=== PATIENT | female | born 1930 | race African-American/Black ===

== ENCOUNTER 2017-11-15 07:33 | Emergency (ER) | payer MEDICARE | END 2017-11-15 09:48 | disposition home or self-care (01) | LOC: ER 07:33 | DX: S80.02XA Contusion of left knee, initial encounter (principal); S80.01XA Contusion of right knee, initial encounter; Z88.0 Allergy status to penicillin; W18.39XA Other fall on same level, initial encounter; Y93.89 Activity, other specified; Y99.8 Other external cause status; Y92.89 Other specified places as the place of occurrence of the external cause | CPT/HCPCS: 73564; 99284 ==

== ENCOUNTER 2017-12-10 18:54 | Inpatient (IN) | payer MEDICARE ==
[2017-12-10 19:30] LABS: ADD MAN DIFF? NO
[2017-12-10 19:32] LABS: BASO % 0 % (0-3); EOS % 0 % (0-3); HEMATOCRIT 36.9 % (36.0-47.0); HEMOGLOBIN 12.6 g/dL (12.0-15.5); LYMPH % 9 % (24-48); MEAN CORPUSCULAR HEMOGLOBIN 31 pg (25-35); MEAN CORPUSCULAR HGB CONC 34 g/dL (31-37); MEAN CORPUSCULAR VOLUME 90 fL (79-100); MONO # 0.6 x10^3/uL (0.0-1.1); MONO % 6 % (0-9); NEUT # 8.7 x10^3uL (1.8-7.7); NEUT % 84 % (31-73); PLATELET COUNT 180 x10^3/uL (140-400); WHITE BLOOD COUNT 10.4 x10^3/uL (4.0-11.0)
[2017-12-10 19:58] LABS: ANION GAP 12 (6-14); BLOOD UREA NITROGEN 38 mg/dL (7-20); CALCIUM 9.6 mg/dL (8.5-10.1); CARBON DIOXIDE 24 mmol/L (21-32); CHLORIDE 96 mmol/L (98-107); CREATININE 2.3 mg/dL (0.6-1.0); GFR 24.4; GLUCOSE 112 mg/dL (70-99); POTASSIUM 3.8 mmol/L (3.5-5.1); SODIUM 132 mmol/L (136-145)
[2017-12-10] MEDS: IV NORMAL SALINE 500ML BAG 500 ML IV ×2 (20:01→21:10)
[2017-12-10 20:03] LABS: LACTIC ACID 1.5 mmol/L (0.4-2.0); TROPONINI 0.031 ng/mL (0.000-0.055)
[2017-12-10 20:08] LABS: NT-PRO BNP 1078 pg/mL (0-449)
[2017-12-10 20:10] LABS: ALBUMIN 2.7 g/dL (3.4-5.0); ALK PHOS 81 U/L (46-116); ALT (SGPT) 35 U/L (14-59); AST (SGOT) 63 U/L (15-37); DIRECT BILIRUBIN 0.2 mg/dL (0.0-0.2); LIPASE 66 U/L (73-393); TOTAL BILIRUBIN 0.6 mg/dL (0.2-1.0); TOTAL PROTEIN 7.8 g/dL (6.4-8.2)
[2017-12-10 21:27] LABS: BILIRUBIN,URINE SMALL (NEG); GLUCOSE,URINE NEGATIVE (NEG); NITRITE,URINE NEGATIVE (NEG); PH,URINE 5.5; PROTEIN,URINE NEGATIVE (NEG-TRACE)
[2017-12-10 21:34] LABS: CLARITY,URINE CLEAR; COLOR,URINE DK YELLOW
[2017-12-10 21:38] LABS: BACTERIA,URINE FEW /HPF (0-FEW); RBC,URINE 0 /HPF (0-2); SQUAMOUS EPITHELIAL CELL,UR MOD /LPF
[2017-12-10 21:42] LABS: CREATINE KINASE 1113 U/L (26-192)
[2017-12-10] MEDS: IV RINGERS,LACTATED 500ML 500 ML IV ×2 (22:15)
[2017-12-10] MEDS: ONDANSETRON PF 4 MG/2 ML VIAL. IV (22:21)
[2017-12-10] MEDS: fentaNYL PF VIAL 100 MCG/2 ML VIAL IV ×2 (22:23→23:39)
[2017-12-10] MEDS ORDERED: ONDANSETRON PF 4 MG/2 ML VIAL. IV (22:45)
[2017-12-10 23:50] LABS: CREATINE KINASE 939 U/L (26-192)
[2017-12-11] MEDS: PROMETH/CODEINE 6.25/10MG 5 ML SYRUP. PO ×3 (02:57→17:20)
[2017-12-11] MEDS: IV NORMAL SALINE 1000ML BAG 1,000 ML IV ×3 (02:58→18:45)
[2017-12-11 05:12] LABS: ADD MAN DIFF? NO
[2017-12-11 05:20] LABS: BASO % 0 % (0-3); EOS % 0 % (0-3); HEMATOCRIT 35.1 % (36.0-47.0); HEMOGLOBIN 11.7 g/dL (12.0-15.5); LYMPH # 0.7 x10^3/uL (1.0-4.8); LYMPH % 7 % (24-48); MEAN CORPUSCULAR HEMOGLOBIN 30 pg (25-35); MEAN CORPUSCULAR HGB CONC 33 g/dL (31-37); MEAN CORPUSCULAR VOLUME 90 fL (79-100); MONO # 0.8 x10^3/uL (0.0-1.1); MONO % 8 % (0-9); NEUT # 8.1 x10^3uL (1.8-7.7); NEUT % 85 % (31-73); PLATELET COUNT 161 x10^3/uL (140-400); RED CELL DISTRIBUTION WIDTH 14.9 % (11.5-14.5); WHITE BLOOD COUNT 9.6 x10^3/uL (4.0-11.0)
[2017-12-11 05:41] LABS: ANION GAP 12 (6-14); BLOOD UREA NITROGEN 31 mg/dL (7-20); CARBON DIOXIDE 23 mmol/L (21-32); CHLORIDE 99 mmol/L (98-107); CREATININE 1.3 mg/dL (0.6-1.0); GFR 47.1; GLUCOSE 100 mg/dL (70-99); POTASSIUM 3.6 mmol/L (3.5-5.1); SODIUM 134 mmol/L (136-145)
[2017-12-11] MEDS: traMADol 50 MG TABLET PO ×2 (08:42→20:44)
[2017-12-11] MEDS: LOSARTAN POTASSIUM 50 MG TABLET. PO (09:00)
[2017-12-11] MEDS: amLODIPine BESYLATE 10 MG TABLET PO (09:00)
[2017-12-11] MEDS ORDERED: NON FORMULARY ITEM (Valsartan/Hydrochlorothiazide (Diovan Hct 160-12.5 Mg Tab) 1 TAB) PO (09:00)
[2017-12-11] MEDS: hydroCHLOROthiazide 12.5 MG CAPSULE PO (09:00)
[2017-12-11] MEDS: ENOXAPARIN 30 MG/0.3 ML SYRINGE. SQ (11:11)
[2017-12-11] MEDS: MORPHINE SULFATE 4 MG/ML DISP.SYRIN. IV (17:20)
[2017-12-12] MEDS: PROMETH/CODEINE 6.25/10MG 5 ML SYRUP. PO ×2 (03:58→13:29)
[2017-12-12] MEDS: traMADol 50 MG TABLET PO ×2 (07:46→14:44)
[2017-12-12] MEDS: amLODIPine BESYLATE 10 MG TABLET PO (07:46)
[2017-12-12] MEDS: ENOXAPARIN 30 MG/0.3 ML SYRINGE. SQ (07:47)
[2017-12-12] MEDS: LOSARTAN POTASSIUM 50 MG TABLET. PO (07:48)
[2017-12-12] MEDS: hydroCHLOROthiazide 12.5 MG CAPSULE PO (07:48)
[2017-12-13] MEDS: PROMETH/CODEINE 6.25/10MG 5 ML SYRUP. PO ×2 (00:24→22:03)
[2017-12-13] MEDS: HYDROcodone/APAP 5/325MG 1 TAB TABLET PO ×4 (00:25→19:54)
[2017-12-13 04:36] LABS: ADD MAN DIFF? NO
[2017-12-13 04:45] LABS: BASO % 0 % (0-3); EOS % 0 % (0-3); HEMATOCRIT 35.1 % (36.0-47.0); HEMOGLOBIN 11.7 g/dL (12.0-15.5); LYMPH # 1.1 x10^3/uL (1.0-4.8); LYMPH % 12 % (24-48); MEAN CORPUSCULAR HEMOGLOBIN 30 pg (25-35); MEAN CORPUSCULAR HGB CONC 33 g/dL (31-37); MEAN CORPUSCULAR VOLUME 90 fL (79-100); MONO # 0.9 x10^3/uL (0.0-1.1); MONO % 10 % (0-9); NEUT # 6.8 x10^3uL (1.8-7.7); NEUT % 77 % (31-73); PLATELET COUNT 240 x10^3/uL (140-400); RED BLOOD COUNT 3.91 x10^6/uL (3.50-5.40); RED CELL DISTRIBUTION WIDTH 14.7 % (11.5-14.5); WHITE BLOOD COUNT 8.9 x10^3/uL (4.0-11.0)
[2017-12-13 04:56] LABS: ANION GAP 6 (6-14); BLOOD UREA NITROGEN 15 mg/dL (7-20); CARBON DIOXIDE 28 mmol/L (21-32); CHLORIDE 99 mmol/L (98-107); GFR 63.8; GLUCOSE 109 mg/dL (70-99); POTASSIUM 3.5 mmol/L (3.5-5.1); SODIUM 133 mmol/L (136-145)
[2017-12-13] MEDS: hydroCHLOROthiazide 12.5 MG CAPSULE PO (08:33)
[2017-12-13] MEDS: LOSARTAN POTASSIUM 50 MG TABLET. PO (08:34)
[2017-12-13] MEDS: amLODIPine BESYLATE 10 MG TABLET PO (08:34)
[2017-12-13] MEDS: ENOXAPARIN 30 MG/0.3 ML SYRINGE. SQ (08:35)
[2017-12-13] MEDS: IPRATRPIUM/ALBUTEROL 0.5/2.5MG 3 ML NEBU. NEB ×3 (15:26→20:21)
[2017-12-13] MEDS: LACTOBACILLUS RHAMNOSUS GG 1 CAPSULE. PO (19:54)
[2017-12-14] MEDS: traMADol 50 MG TABLET PO ×2 (00:26→20:19)
[2017-12-14] MEDS: fentaNYL PF VIAL 100 MCG/2 ML VIAL IV (01:11)
[2017-12-14] MEDS: HYDROcodone/APAP 5/325MG 1 TAB TABLET PO ×2 (02:46→14:12)
[2017-12-14] MEDS: PROMETH/CODEINE 6.25/10MG 5 ML SYRUP. PO ×3 (04:27→20:19)
[2017-12-14 05:25] LABS: ADD MAN DIFF? NO
[2017-12-14 05:41] LABS: BASO % 0 % (0-3); EOS % 0 % (0-3); HEMATOCRIT 32.9 % (36.0-47.0); HEMOGLOBIN 11.2 g/dL (12.0-15.5); LYMPH # 0.8 x10^3/uL (1.0-4.8); LYMPH % 9 % (24-48); MEAN CORPUSCULAR HEMOGLOBIN 31 pg (25-35); MEAN CORPUSCULAR HGB CONC 34 g/dL (31-37); MEAN CORPUSCULAR VOLUME 90 fL (79-100); MONO # 0.9 x10^3/uL (0.0-1.1); MONO % 10 % (0-9); NEUT # 7.3 x10^3uL (1.8-7.7); NEUT % 81 % (31-73); PLATELET COUNT 248 x10^3/uL (140-400); RED BLOOD COUNT 3.67 x10^6/uL (3.50-5.40); RED CELL DISTRIBUTION WIDTH 14.6 % (11.5-14.5)
[2017-12-14 06:05] LABS: ANION GAP 9 (6-14); BLOOD UREA NITROGEN 15 mg/dL (7-20); CALCIUM 8.9 mg/dL (8.5-10.1); CARBON DIOXIDE 26 mmol/L (21-32); CHLORIDE 96 mmol/L (98-107); CREATININE 1.1 mg/dL (0.6-1.0); GFR 57.1; GLUCOSE 116 mg/dL (70-99); POTASSIUM 3.1 mmol/L (3.5-5.1); SODIUM 131 mmol/L (136-145)
[2017-12-14] MEDS: IPRATRPIUM/ALBUTEROL 0.5/2.5MG 3 ML NEBU. NEB ×4 (07:31→19:19)
[2017-12-14] MEDS: hydroCHLOROthiazide 12.5 MG CAPSULE PO (08:11)
[2017-12-14] MEDS: LOSARTAN POTASSIUM 50 MG TABLET. PO (08:12)
[2017-12-14] MEDS: LACTOBACILLUS RHAMNOSUS GG 1 CAPSULE. PO ×2 (08:13→20:19)
[2017-12-14] MEDS: amLODIPine BESYLATE 10 MG TABLET PO (08:13)
[2017-12-14] MEDS: ENOXAPARIN 30 MG/0.3 ML SYRINGE. SQ (08:13)
[2017-12-14] MEDS: POTASSIUM CHLORIDE 20 MEQ TABLET.ER. PO (20:19)
[2017-12-14] MEDS: IV NORMAL SALINE 1000ML BAG 1,000 ML IV (20:19)
[2017-12-14] MEDS: MELATONIN 10MG TABLET PO ×2 (20:21→21:31)
[2017-12-14] MEDS: DICLOFENAC SODIUM 1% TOPICAL GEL 100GM TUBE. TP (21:31)
[2017-12-15 04:52] LABS: BASO % 0 % (0-3); EOS % 0 % (0-3); HEMATOCRIT 34.5 % (36.0-47.0); HEMOGLOBIN 11.4 g/dL (12.0-15.5); LYMPH % 7 % (24-48); MEAN CORPUSCULAR HEMOGLOBIN 30 pg (25-35); MEAN CORPUSCULAR HGB CONC 33 g/dL (31-37); MEAN CORPUSCULAR VOLUME 90 fL (79-100); MONO # 1.1 x10^3/uL (0.0-1.1); MONO % 8 % (0-9); NEUT # 12.3 x10^3uL (1.8-7.7); NEUT % 85 % (31-73); PLATELET COUNT 297 x10^3/uL (140-400); RED BLOOD COUNT 3.85 x10^6/uL (3.50-5.40); RED CELL DISTRIBUTION WIDTH 14.9 % (11.5-14.5); WHITE BLOOD COUNT 14.4 x10^3/uL (4.0-11.0)
[2017-12-15 04:57] LABS: ADD MAN DIFF? YES
[2017-12-15 05:17] LABS: ANION GAP 9 (6-14); BLOOD UREA NITROGEN 11 mg/dL (7-20); CALCIUM 9.1 mg/dL (8.5-10.1); CARBON DIOXIDE 27 mmol/L (21-32); CHLORIDE 98 mmol/L (98-107); CREATININE 0.9 mg/dL (0.6-1.0); GLUCOSE 114 mg/dL (70-99); POTASSIUM 3.9 mmol/L (3.5-5.1); SODIUM 134 mmol/L (136-145)
[2017-12-15] MEDS: IPRATRPIUM/ALBUTEROL 0.5/2.5MG 3 ML NEBU. NEB ×3 (07:38→16:00)
[2017-12-15 08:18] LABS: % BANDS 24 % (0-9); % LYMPHS 10 % (24-48); % MONOS 7 % (0-10); % SEGS 59 % (35-66)
[2017-12-15 08:20] LABS: PLT ESTIMATE ADEQUATE (ADEQUATE); TOXIC GRANULATION SLIGHT
[2017-12-15] MEDS: traMADol 50 MG TABLET PO (10:08)
[2017-12-15] MEDS: ENOXAPARIN 30 MG/0.3 ML SYRINGE. SQ (10:08)
[2017-12-15] MEDS: LACTOBACILLUS RHAMNOSUS GG 1 CAPSULE. PO (10:08)
[2017-12-15] MEDS: LOSARTAN POTASSIUM 50 MG TABLET. PO (10:09)
[2017-12-15] MEDS: hydroCHLOROthiazide 12.5 MG CAPSULE PO (10:09)
[2017-12-15] MEDS: amLODIPine BESYLATE 10 MG TABLET PO (10:09)
[2017-12-15] MEDS: DICLOFENAC SODIUM 1% TOPICAL GEL 100GM TUBE. TP (10:10)
== END 2017-12-15 12:50 | DRG 871 ==
LOC: 5 SOUTH 22:31 → ER 18:54
PROC: 5A09357 Assistance with Respiratory Ventilation, Less than 24 Consecutive Hours, Continuous Positive Airway Pressure (ICD-10-PCS; principal; 2017-12-10)
DX: A41.9 Sepsis, unspecified organism (principal); G93.41 Metabolic encephalopathy; J69.0 Pneumonitis due to inhalation of food and vomit; E43 Unspecified severe protein-calorie malnutrition; N17.0 Acute kidney failure with tubular necrosis; N39.0 Urinary tract infection, site not specified; E87.1 Hypo-osmolality and hyponatremia; Z68.23 Body mass index [BMI] 23.0-23.9, adult; F32.9 Major depressive disorder, single episode, unspecified; I10 Essential (primary) hypertension; I27.29 Other secondary pulmonary hypertension; Z88.6 Allergy status to analgesic agent; M19.90 Unspecified osteoarthritis, unspecified site; Z88.0 Allergy status to penicillin
CPT/HCPCS: 36415; 71045; 71046; 73521; 80048; 80076; 81001; 82550; 83605; 83690; 83880; 84484; 85007; 85025; 87086; 92610-GN; 93005; 93306; 94640; 94760; 96361; 96374; 96375; 97110-GP; 97162-GP; 97166-GO; 97530-GO; 97530-GP; 97535-GO; 99285; 99285-25; J1650; J1956; J2270; J2405; J3010; J7030; J7040; J7120; J7620

== ENCOUNTER 2018-02-22 10:11 | Emergency (ER) | payer MEDICARE ==
[2018-02-22 10:21] LABS: POC GLUCOSE 121 mg/dL (70-99)
[2018-02-22 10:45] LABS: BILIRUBIN,URINE NEGATIVE (NEG); CLARITY,URINE CLOUDY; COLOR,URINE YELLOW; GLUCOSE,URINE NEGATIVE (NEG); NITRITE,URINE NEGATIVE (NEG); PH,URINE 6.5; PROTEIN,URINE NEGATIVE (NEG-TRACE)
[2018-02-22] MEDS: IV NORMAL SALINE 500ML BAG 500 ML IV (10:50)
[2018-02-22 10:54] LABS: ADD MAN DIFF? NO
[2018-02-22 10:57] LABS: BACTERIA,URINE MANY /HPF (0-FEW); RBC,URINE RARE /HPF (0-2); SQUAMOUS EPITHELIAL CELL,UR OCC /LPF
[2018-02-22 11:03] LABS: BASO % 1 % (0-3); EOS % 0 % (0-3); HEMOGLOBIN 12.6 g/dL (12.0-15.5); LYMPH % 17 % (24-48); MEAN CORPUSCULAR HEMOGLOBIN 31 pg (25-35); MEAN CORPUSCULAR HGB CONC 34 g/dL (31-37); MEAN CORPUSCULAR VOLUME 92 fL (79-100); MONO # 0.6 x10^3/uL (0.0-1.1); MONO % 10 % (0-9); NEUT # 4.3 x10^3uL (1.8-7.7); NEUT % 73 % (31-73); PLATELET COUNT 269 x10^3/uL (140-400); RED BLOOD COUNT 4.02 x10^6/uL (3.50-5.40); RED CELL DISTRIBUTION WIDTH 15.2 % (11.5-14.5); WHITE BLOOD COUNT 5.9 x10^3/uL (4.0-11.0)
[2018-02-22 11:07] LABS: ANION GAP 6 (6-14); BLOOD UREA NITROGEN 7 mg/dL (7-20); CALCIUM 8.8 mg/dL (8.5-10.1); CARBON DIOXIDE 27 mmol/L (21-32); CHLORIDE 90 mmol/L (98-107); CREATININE 0.7 mg/dL (0.6-1.0); GFR 96.2; GLUCOSE 98 mg/dL (70-99); SODIUM 123 mmol/L (136-145)
[2018-02-22 11:09] LABS: POTASSIUM 3.5 mmol/L (3.5-5.1)
[2018-02-22 11:15] LABS: TROPONINI < 0.017 ng/mL (0.000-0.055)
== END 2018-02-22 13:45 | disposition home or self-care (01) ==
LOC: ER 10:11
DX: R60.0 Localized edema (principal); F03.90 Unspecified dementia, unspecified severity, without behavioral disturbance, psychotic disturbance, mood disturbance, and anxiety; R53.83 Other fatigue; R01.1 Cardiac murmur, unspecified; M19.90 Unspecified osteoarthritis, unspecified site; I10 Essential (primary) hypertension; Z88.0 Allergy status to penicillin
CPT/HCPCS: 36415; 71045; 80048; 81001; 82962; 84484; 85025; 87086; 93005; 96365; 99285-25; J0690; J7040

== ENCOUNTER 2018-07-02 11:00 | Emergency (ER) | payer MEDICARE ==
[~2018-07-02] VITALS: Ht 160 cm; Wt 48.1 kg
[~2018-07-02 11:00] MED LIST: AMLO10TA4 PO; LEVO500T59 PO; LEVO750T31 PO; TRAM50TA PO; VALS1TAB8 PO
[2018-07-02] MEDS ORDERED: OXYMETAZOLINE 0.05% NASAL SPRAY 30ML BOTTLE. NS ONE (11:30)
[2018-07-02 11:36] VITALS: BP 151/82
[2018-07-02 11:46] LABS: BASO % 1 % (0-3); EOS # 0.1 x10^3/uL (0.0-0.7); EOS % 1 % (0-3); HEMATOCRIT 41.1 % (36.0-47.0); LYMPH # 1.2 x10^3/uL (1.0-4.8); LYMPH % 21 % (24-48); MEAN CORPUSCULAR HEMOGLOBIN 32 pg (25-35); MEAN CORPUSCULAR HGB CONC 34 g/dL (31-37); MEAN CORPUSCULAR VOLUME 94 fL (79-100); MONO # 0.5 x10^3/uL (0.0-1.1); MONO % 8 % (0-9); NEUT # 4.1 x10^3uL (1.8-7.7); NEUT % 69 % (31-73); PLATELET COUNT 214 x10^3/uL (140-400); RED BLOOD COUNT 4.37 x10^6/uL (3.50-5.40); RED CELL DISTRIBUTION WIDTH 13.1 % (11.5-14.5); WHITE BLOOD COUNT 5.9 x10^3/uL (4.0-11.0)
[2018-07-02 11:58] LABS: PROTHROMBIN TIME PATIENT 13.4 SEC (11.7-14.0)
[2018-07-02] MEDS ORDERED: SODI104S NS (12:25)
--- NOTE | 2018-07-02 12:25 | PHYS DOC ---
Past Medical History Past Medical History: Anxiety, Arthritis, CVA, Dementia, High Cholesterol, Hypertension, UTI Past Surgical History: Other Additional Past Surgical Histo: HERNIA Alcohol Use: None Drug Use: None Adult General Chief Complaint Chief Complaint: NOSEBLEED HPI HPI Patient is a 87 year old [f__sex] who presents with [] Review of Systems Review of Systems Constitutional: Denies fever or chills [] Eyes: Denies change in visual acuity, redness, or eye pain [] HENT: Denies nasal congestion or sore throat [] Respiratory: Denies cough or shortness of breath [] Cardiovascular: No additional information not addressed in HPI [] GI: Denies abdominal pain, nausea, vomiting, bloody stools or diarrhea [] : Denies dysuria or hematuria [] Musculoskeletal: Denies back pain or joint pain [] Integument: Denies rash or skin lesions [] Neurologic: Denies headache, focal weakness or sensory changes [] Endocrine: Denies polyuria or polydipsia [] All other systems were reviewed and found to be within normal limits, except as documented in this note. Current Medications Current Medications Current Medications Medications (Trade) Dose Ordered Sig/Cody Start Time Stop Time Status Last Admin Dose Admin Oxymetazoline HCl (Afrin) 2 spray 1X ONCE 07/02/18 11:30 07/02/18 11:31 DC 07/02/18 11:37 2 SPRAY Allergies Allergies Allergies Coded Allergies Type Severity Reaction Last Updated Verified Penicillins Allergy Intermediate RASH 11/15/17 Yes Physical Exam Physical Exam Constitutional: Well developed, well nourished, no acute distress, non-toxic appearance. [] HENT: Normocephalic, atraumatic, bilateral external ears normal, oropharynx moist, no oral exudates, nose normal. [] Eyes: PERRLA, EOMI, conjunctiva normal, no discharge. [] Neck: Normal range of motion, no tenderness, supple, no stridor. [] Cardiovascular:Heart rate regular rhythm, no murmur [] Lungs & Thorax: Bilateral breath sounds clear to auscultation [] Abdomen: Bowel sounds normal, soft, no tenderness, no masses, no pulsatile masses. [] Skin: Warm, dry, no erythema, no rash. [] Back: No tenderness, no CVA tenderness. [] Extremities: No tenderness, no cyanosis, no clubbing, ROM intact, no edema. [] Neurologic: Alert and oriented X 3, normal motor function, normal sensory function, no focal deficits noted. [] Psychologic: Affect normal, judgement normal, mood normal. [] Current Patient Data Vital Signs Vital Signs Date Time Temp Pulse Resp B/P (MAP) Pulse Ox O2 Delivery O2 Flow Rate FiO2 07/02/18 11:00 98.1 93 18 170/84 (112) 97 Room Air 98.1 Lab Values Laboratory Tests Test 07/02/18 11:35 White Blood Count 5.9 x10^3/uL (4.0-11.0) Red Blood Count 4.37 x10^6/uL (3.50-5.40) Hemoglobin 14.0 g/dL (12.0-15.5) Hematocrit 41.1 % (36.0-47.0) Mean Corpuscular Volume 94 fL (79-100) Mean Corpuscular Hemoglobin 32 pg (25-35) Mean Corpuscular Hemoglobin Concent 34 g/dL (31-37) Red Cell Distribution Width 13.1 % (11.5-14.5) Platelet Count 214 x10^3/uL (140-400) Neutrophils (%) (Auto) 69 % (31-73) Lymphocytes (%) (Auto) 21 % (24-48) L Monocytes (%) (Auto) 8 % (0-9) Eosinophils (%) (Auto) 1 % (0-3) Basophils (%) (Auto) 1 % (0-3) Neutrophils # (Auto) 4.1 x10^3uL (1.8-7.7) Lymphocytes # (Auto) 1.2 x10^3/uL (1.0-4.8) Monocytes # (Auto) 0.5 x10^3/uL (0.0-1.1) Eosinophils # (Auto) 0.1 x10^3/uL (0.0-0.7) Basophils # (Auto) 0.0 x10^3/uL (0.0-0.2) Prothrombin Time 13.4 SEC (11.7-14.0) Prothrombin Time INR 1.1 (0.8-1.1) PTT 26 SEC (24-38) Laboratory Tests 07/02/18 11:35 EKG EKG [] Radiology/Procedures Radiology/Procedures [] Course & Med Decision Making Course & Med Decision Making Pertinent Labs and Imaging studies reviewed. (See chart for details) [] Dragon Disclaimer Dragon Disclaimer This electronic medical record was generated, in whole or in part, using a voice recognition dictation system. Departure Departure Impression: Primary Impression: Nosebleed Disposition: HOME, SELF-CARE Condition: STABLE Referrals: BHAVESH FISCHER MD (PCP) Patient Instructions: Nosebleed, Hfep-gl-Oilk Additional Instructions: Use humidifier at night. For further bleeding, blow nose to remove any clots and then use Afrin to each nostril x [address] nasal clamp on nose x 15min. Remove after 15 min. May repeat x 2 more times for continued bleeding. If bleeding continues after total of 45 min worth of pressure and Afrin 2 sprays x 3 doses then return to ED for evaluation. Scripts Sodium Chloride (OCEAN) 104 Ml [place] 104 ML NS QID, #1 BOTTLE Prov: KASEY RONDON DO 07/02/18 KASEY RONDON DO Jul 02, 2018 12:25
== END 2018-07-02 13:40 | disposition home or self-care (01) ==
LOC: ER 11:00
DX: R04.0 Epistaxis (principal); M19.90 Unspecified osteoarthritis, unspecified site; F41.9 Anxiety disorder, unspecified; E78.00 Pure hypercholesterolemia, unspecified; I10 Essential (primary) hypertension; Z87.440 Personal history of urinary (tract) infections; Z86.73 Personal history of transient ischemic attack (TIA), and cerebral infarction without residual deficits; Z88.0 Allergy status to penicillin
CPT/HCPCS: 36415; 85025; 85610; 85730; 99284

== ENCOUNTER 2020-01-12 08:54 | Inpatient (IN) | payer MEDICARE ==
[~2020-01-12] VITALS: Ht 167.6 cm; Wt 74.3 kg
[~2020-01-12 08:54] MED LIST changes: +SODI104S NS
--- NOTE | 2020-01-12 09:26 | EKG ---
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
[2020-01-12 09:52] LABS: CALCIUM 9.5 mg/dL (8.5-10.1); CREATININE 1.1 mg/dL (0.6-1.0); GFR 56.9; POTASSIUM 3.9 mmol/L (3.5-5.1)
[2020-01-12 09:58] LABS: ALBUMIN 2.4 g/dL (3.4-5.0); ALBUMIN/GLOBULIN RATIO 0.4 (1.0-1.7); TOTAL BILIRUBIN 0.9 mg/dL (0.2-1.0); TOTAL PROTEIN 8.1 g/dL (6.4-8.2)
--- NOTE | 2020-01-12 10:11 | RAD ---
EXAM: CHEST ONE VIEW. HISTORY: Shortness of breath, COVID-19. COMPARISON: 02/22/2018. FINDINGS: A frontal view of the chest is obtained. There is a diffuse airspace infiltrate throughout the left lung. Milder infiltrates or atelectasis are suspected in the right base. There is a component of left volume loss. There is no pneumothorax or pleural effusion. The heart is not enlarged. IMPRESSION: 1. Diffuse left and mild right basilar infiltrates. Electronically signed by: Michelle Toney MD (01/12/2020 10:08 AM) [id number]
[2020-01-12 10:31] LABS: BASO % 0 % (0-3); EOS % 0 % (0-3); HEMATOCRIT 43.9 % (36.0-47.0); HEMOGLOBIN 14.6 g/dL (12.0-15.5); LYMPH # 0.5 x10^3/uL (1.0-4.8); LYMPH % 6 % (24-48); MEAN CORPUSCULAR HEMOGLOBIN 31 pg (25-35); MEAN CORPUSCULAR HGB CONC 33 g/dL (31-37); MEAN CORPUSCULAR VOLUME 92 fL (79-100); MONO # 0.5 x10^3/uL (0.0-1.1); MONO % 6 % (0-9); NEUT # 7.5 x10^3/uL (1.8-7.7); NEUT % 88 % (31-73); PLATELET COUNT 99 x10^3/uL (140-400); RED BLOOD COUNT 4.75 x10^6/uL (3.50-5.40); RED CELL DISTRIBUTION WIDTH 14.1 % (11.5-14.5); WHITE BLOOD COUNT 8.5 x10^3/uL (4.0-11.0)
--- NOTE | 2020-01-12 10:32 | PHYS DOC ---
Past Medical History Past Medical History: Anxiety, Arthritis, CVA, Dementia, High Cholesterol, Hypertension, UTI Past Surgical History: Other Additional Past Surgical Histo: HERNIA Smoking Status: Never Smoker Alcohol Use: None Drug Use: None General Adult EDM: Chief Complaint: ALTERED MENTAL STATUS HPI: HPI: Patient is a 89 year old female patient of senior care with history of hypertension, dyslipidemia, dementia, CVA, UTI, anxiety, arthritis and recent positive COVID 19 test who presents via EMS because of increasing confusion. halfway staff reported that she is more confused than her usual. Patient had O2 sat of 80s at room air reported by EMS that improved with restarting nasal cannula. Patient had O2 sat of 86% at arrival to ER on room air that imp roved with nonrebreather to 100%. Patient is nonverbal in ER but answering yes or no to some of the questions and unable to give history. Review of Systems: Review of Systems: Unable to obtain Heart Score: Risk Factors: Risk Factors: DM, Current or recent (<one month) smoker, HTN, HLP, family history of CAD, obesity. Risk Scores: Score 0 - 3: 2.5% MACE over next 6 weeks - Discharge Home Score 4 - 6: 20.3% MACE over next 6 weeks - Admit for Clinical Observation Score 7 - 10: 72.7% MACE over next 6 weeks - Early Invasive Strategies Allergies: Allergies: Allergies Coded Allergies Type Severity Reaction Last Updated Verified Penicillins Allergy Intermediate RASH 11/15/17 Yes Physical Exam: PE: Constitutional: Mild distress, non-toxic appearance, afebrile, nonverbal. [] HENT: Normocephalic, atraumatic. Eyes: PERRLA, EOMI, conjunctiva normal, no discharge. [] Neck: Normal range of motion, no tenderness, supple, no stridor. [] Cardiovascular: Tachycardia, no murmur [] Lungs & Thorax: No respiratory distress, O2 sat of 100% on nonrebreather facial mask Abdomen: Bowel sounds normal, soft, no tenderness, no masses, no pulsatile masses. [] Skin: Warm, dry, no erythema, no rash. [] Extremities: No tenderness, unable to evaluate Neurologic: Awake, unable to evaluate Psychologic: Unable to evaluate Current Patient Data: Labs: Laboratory Tests Test 01/12/20 09:20 Sodium Level 140 mmol/L (136-145) Potassium Level 3.9 mmol/L (3.5-5.1) Chloride Level 102 mmol/L (98-107) Carbon Dioxide Level 27 mmol/L (21-32) Anion Gap 11 (6-14) Blood Urea Nitrogen 33 mg/dL (7-20) H Creatinine 1.1 mg/dL (0.6-1.0) H Estimated GFR (Cockcroft-Gault) 56.9 BUN/Creatinine Ratio 30 (6-20) H Glucose Level 137 mg/dL (70-99) H Lactic Acid Level 2.0 mmol/L (0.4-2.0) Calcium Level 9.5 mg/dL (8.5-10.1) Total Bilirubin 0.9 mg/dL (0.2-1.0) Aspartate Amino Transferase (AST) 74 U/L (15-37) H Alanine Aminotransferase (ALT) 27 U/L (14-59) Alkaline Phosphatase 83 U/L (46-116) Creatine Kinase 242 U/L (26-192) H Troponin I Quantitative 3.202 ng/mL (0.000-0.055) HG-Eyb-B-Type Natriuretic Peptide 8631 pg/mL (0-449) H Total Protein 8.1 g/dL (6.4-8.2) Albumin 2.4 g/dL (3.4-5.0) L Albumin/Globulin Ratio 0.4 (1.0-1.7) L Laboratory Tests 01/12/20 09:20 Vital Signs: Vital Signs Date Time Temp Pulse Resp B/P (MAP) Pulse Ox O2 Delivery O2 Flow Rate FiO2 01/12/20 09:15 97.4 115 22 103/63 (76) 96 NonRebreather Mask 15.0 97.4 EKG: EKG: EKG interpreted by me. EKG at 0914 showed sinus tachycardia at rate of 117, PVCs, poor R wave progression anteroseptal leads, no acute ST and T wave elevation. Radiology/Procedures: Radiology/Procedures: [facility] [address] [place], [place] [id number] IMAGING REPORT Signed PATIENT: FAM PARKER ACCOUNT: [id number] : 1930 LOCATION: ER AGE: 89 SEX: F EXAM STATUS: REG ER ORD. PHYSICIAN: ANDREW HURLEY MD REASON: Shortness of breath, positive COVID 19 PROCEDURE: PORTABLE CHEST 1V EXAM: CHEST ONE VIEW. HISTORY: Shortness of breath, COVID-19. COMPARISON: 02/22/2018. FINDINGS: A frontal view of the chest is obtained. There is a diffuse airspace infiltrate throughout the left lung. Milder infiltrates or atelectasis are suspected in the right base. There is a component of left volume loss. There is no pneumothorax or pleural effusion. The heart is not enlarged. IMPRESSION: 1. Diffuse left and mild right basilar infiltrates. Electronically signed by: Michelle Toney MD (01/12/2020 10:08 AM) [id number] DICTATED and SIGNED BY: JENNIE TONEY MD DATE: 01/12/20 1008 Course & Med Decision Making: Course & Med Decision Making Pertinent Labs and Imaging studies reviewed. (See chart for details) Evaluation of patient inertial 89-year-old female patient of senior care with diagnosis of quit 19 brought in because of increasing hypoxia and altered level of consciousness. Patient has history of dementia and unable to give history in ER. Patient had O2 sat of 86% at room air that improved with nonrebreather. Patient had troponin of 3.2 that looks related to complication of COVID 19 infect, cardiology was consulted at 1040 and plan to see the patient. Patient requiring admission for further evaluation and treatment. Discussed with Dr. Michaud who is in agreement with admission. Discussed findings and plan with patient and family, who acknowledge understanding and agreement. Dragon Disclaimer: Dragmonika Disclaimer: This electronic medical record was generated, in whole or in part, using a voice recognition dictation system. Departure Departure Impression: Primary Impression: COVID-19 virus infection Additional Impressions: Hypoxia Elevated troponin Bilateral pneumonia Qualified Codes: J18.9 - Pneumonia, unspecified organism Renal insufficiency CHF (congestive heart failure) Qualified Codes: I50.9 - Heart failure, unspecified Altered level of consciousness Disposition: ADMITTED INPATIENT (At 1028) Admitting Physician: LIZABETH (Dr. michaud accepted admission at 1025) Condition: GUARDED Referrals: BHAVESH FISCHER MD (PCP) Critical Care Time Critical care time was 50 minutes exclusive of procedures. COVID-19 Assessment: COVID-19 Patient Risks: Age 65 or older: Yes Sign of co-morbidity: Yes Exp to person + for COVID: Yes Exp to PUI: Yes Travel from affected area: No Lower respiratory symptoms: Yes Fever: No Other: Yes (Positive COVID-19 ) PPE Use: Full PPE with N95 mask or PAPR: Yes ANDREW HURLEY MD Jan 12, 2020 10:32
[2020-01-12 10:51] LABS: PROTHROMBIN TIME PATIENT 15.2 SEC (11.7-14.0)
[2020-01-12] MEDS ORDERED: IV NORMAL SALINE 1000ML BAG 1,000 ML IV SCH (10:57)
[2020-01-12 11:42] LABS: % ATYL 2 % (0-0); % BANDS 5 % (0-9); % LYMPHS 4 % (24-48); % MONOS 4 % (0-10); % SEGS 85 % (35-66)
--- NOTE | 2020-01-12 11:42 | PDOC2 ---
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 Duarte SOURCE Source: Chart review HISTORY OF PRESENT ILLNESS HISTORY OF PRESENT ILLNESS This is an 89 yo patient who presented from [facility] secondary to altered mental status. Patient is COVID +. Troponin noted at 3.2, which prompted this consult. HPI obtain from chart review as patient is currently non- responsive . PAST MEDICAL HISTORY Cardiovascular: HTN CENTRAL NERVOUS SYSTEM: Dementia Psych: Depression Musculoskeletal: Osteoarthritis PAST SURGICAL HISTORY Past Surgical History: Hernia Repair FAMILY HISTORY Family History: Family History Unknown SOCIAL HISTORY Smoke: No ALCOHOL: none Drugs: None Lives: Assisted ALLERGIES ALLERGIES: Coded Allergies: Penicillins (Verified Allergy, Intermediate, RASH, 11/15/17) ROS Review of System unobtainable PHYSICAL EXAM PHYSICAL EXAM visual exam conducted. D/w RN General: Alert (nonresponsive ) HEENT: Atraumatic Heart: Regular rate Extremities: No edema Skin: No significant lesion Neuro: Other (moaning, non-verbal) Psych/Mental Status: Other (unable to assess ) MUSCULOSKELETAL: Osteoarthritic changes both hands VITALS/I&O VITALS/I&O: Vital Signs Date Time Temp Pulse Resp B/P (MAP) Pulse Ox O2 Delivery O2 Flow Rate FiO2 01/12/20 10:30 104 20 100 01/12/20 09:15 97.4 103/63 (76) NonRebreather Mask 15.0 97.4 LABS Lab: Laboratory Tests Test 01/12/20 09:20 01/12/20 10:10 Sodium Level 140 mmol/L (136-145) Potassium Level 3.9 mmol/L (3.5-5.1) Chloride Level 102 mmol/L (98-107) Carbon Dioxide Level 27 mmol/L (21-32) Anion Gap 11 (6-14) Blood Urea Nitrogen 33 mg/dL (7-20) H Creatinine 1.1 mg/dL (0.6-1.0) H Estimated GFR (Cockcroft-Gault) 56.9 BUN/Creatinine Ratio 30 (6-20) H Glucose Level 137 mg/dL (70-99) H Lactic Acid Level 2.0 mmol/L (0.4-2.0) Calcium Level 9.5 mg/dL (8.5-10.1) Total Bilirubin 0.9 mg/dL (0.2-1.0) Aspartate Amino Transferase (AST) 74 U/L (15-37) H Alanine Aminotransferase (ALT) 27 U/L (14-59) Alkaline Phosphatase 83 U/L (46-116) Creatine Kinase 242 U/L (26-192) H Troponin I Quantitative 3.202 ng/mL (0.000-0.055) YU-Iya-B-Type Natriuretic Peptide 8631 pg/mL (0-449) H Total Protein 8.1 g/dL (6.4-8.2) Albumin 2.4 g/dL (3.4-5.0) L Albumin/Globulin Ratio 0.4 (1.0-1.7) L White Blood Count 8.5 x10^3/uL (4.0-11.0) Red Blood Count 4.75 x10^6/uL (3.50-5.40) Hemoglobin 14.6 g/dL (12.0-15.5) Hematocrit 43.9 % (36.0-47.0) Mean Corpuscular Volume 92 fL (79-100) Mean Corpuscular Hemoglobin 31 pg (25-35) Mean Corpuscular Hemoglobin Concent 33 g/dL (31-37) Red Cell Distribution Width 14.1 % (11.5-14.5) Platelet Count 99 x10^3/uL (140-400) L Neutrophils (%) (Auto) 88 % (31-73) H Lymphocytes (%) (Auto) 6 % (24-48) L Monocytes (%) (Auto) 6 % (0-9) Eosinophils (%) (Auto) 0 % (0-3) Basophils (%) (Auto) 0 % (0-3) Neutrophils # (Auto) 7.5 x10^3/uL (1.8-7.7) Lymphocytes # (Auto) 0.5 x10^3/uL (1.0-4.8) L Monocytes # (Auto) 0.5 x10^3/uL (0.0-1.1) Eosinophils # (Auto) 0.0 x10^3/uL (0.0-0.7) Basophils # (Auto) 0.0 x10^3/uL (0.0-0.2) Platelet Estimate Pending Prothrombin Time 15.2 SEC (11.7-14.0) H Prothrombin Time INR 1.2 (0.8-1.1) H Laboratory Tests 01/12/20 10:10 Laboratory Tests 01/12/20 09:20 ASSESSMENT/PLAN ASSESSMENT/PLAN 1. Acute respiratory failure secondary to PNA, COVID +. Resident of [place]. CXR with bilateral infiltrates 2. NSTEMI; trop 3.2. Lovenox tx dosing. EKG with ST. Non-specific ST/T-wave changes. Most probably type II, demand ischemia in setting of COVID. Recommend medical mangement given advanced age, comorbidities, and COVID + 3. Hypertension; BP low end 4. Encephalopathy with h/o dementia 5. EMANUEL Recommendations ASA Lipids Trend troponin Add low-dose metoprolol as BP allows unless wheezing noted Anticoagulation therapy with Lovenox for 24-48hrs for NSTEMI Lung optimization as per pulm Supportive care LUIZ ANGEL MD 01/12/20 1802: CARDIAC CONSULT ASSESSMENT/PLAN ASSESSMENT/PLAN Patient seen and examined. Agree with BOILERMAKER MECHANIC's assessment and plan, NSTEMI prob demand ischemia but CAD cannot be ruled out Considering his age and comorbidities, will pursue conservative management Continue management of ac resp failure/Covid19 per pulm team Thank you for your consultation ANTIONETTE WILSON APRN Jan 12, 2020 11:42 LUIZ ANGEL MD Jan 12, 2020 18:02
[2020-01-12 11:45] LABS: PLT ESTIMATE DECREASED (ADEQUATE)
[2020-01-12] MEDS ORDERED: levOFLOXacin PER PHARMACY. MC PRN (12:30)
--- NOTE | 2020-01-12 12:47 | CONS ---
DATE OF CONSULTATION: PULMONARY CONSULTATION ATTENDING PHYSICIAN: Dr. Michaud. REASON FOR CONSULTATION: Pneumonia, hypoxia and COVID-19 positive. HISTORY OF PRESENT ILLNESS: The patient is an 89-year-old who lives at the [facility] where there is an outbreak of COVID-19 infection. She was brought into the hospital with altered mental status. She was COVID positive. Her troponin was elevated. She is currently requiring oxygen at high flow, saturation of 100%. No further history could be obtained from the patient. PAST MEDICAL HISTORY: Significant for hypertension, depression, osteoarthritis. PAST SURGICAL HISTORY: Hernia repair. ALLERGIES: PENICILLIN. REVIEW OF SYSTEMS: Unable to obtain from the patient. MEDICATIONS: Medications that she received in the ER were full-dose Lovenox. SOCIAL HISTORY: Lives at the long term. PHYSICAL EXAMINATION: VITAL SIGNS: Reviewed. Pulse ox 100% on 15 liters high flow cannula. NECK: Supple. LUNGS: With diminished breath sounds. CARDIOVASCULAR: Regular rate. ABDOMEN: Soft. EXTREMITIES: With no pitting edema. LABORATORY DATA: Reviewed. White cell count 8.5, hemoglobin 14.6 and platelets are 99,000. BUN 33 and creatinine 1.1. Troponin is 3.2. IMPRESSION: 1. Acute hypoxic respiratory failure, likely secondary to COVID-19 pneumonia. 2. Abnormal chest x-ray with extensive left lung infiltrate and minimal right lung infiltrate, likely consistent with pneumonia. Highly likely viral pneumonia, but cannot exclude underlying superimposed bacterial pneumonia. 3. Abnormal troponin could be COVID-induced cardiac injury versus [id number] infarction. Cardiology is following. 4. Encephalopathy secondary to multifactorial etiologies. RECOMMENDATIONS: 1. Continue with present oxygen to keep saturations 94 and above with wean FiO2. 2. Add broad-spectrum antibiotics. 3. We will hold off on hydroxychloroquine due to underlying suspected ischemia and risk for QTC prolongation. 4. Full dose Lovenox per Cardiology. 5. Follow Cardiology recommendations. 6. Echo per Cardiology. 7. Discussed with RN. We will follow along with you. ALFONSO GARCIA MD DR: LAVERN/lilibeth JOB#: [id number] / [id number]
[2020-01-12] MEDS ORDERED: fentaNYL PF VIAL 100 MCG/2 ML VIAL IVP PRN (14:00)
--- NOTE | 2020-01-12 14:02 | PDOC1 ---
History and Physical Date of Admission Date of Admission DATE: 01/12/20 TIME: 13:57 History of Present Illness History of Present Illness Ms. Junior has been at [place], is known COVID-19 positive, and has been doing OK. today, she was more confused and lethargic and did not act like herself. new hypoxia in the ER, with tachycardia Past Medical History Cardiovascular: HTN Hepatobiliary: No pertinent hx Psych: Depression Musculoskeletal: Osteoarthritis Endocrine: No pertinent hx Past Surgical History Past Surgical History: Hernia Repair Family History Family History: No Significant Social History ALCOHOL: rare Drugs: None Current Problem List Problem List Problems Medical Problems: (1) Altered level of consciousness Status: Acute (2) Bilateral pneumonia Status: Acute (3) CHF (congestive heart failure) Status: Acute (4) COVID-19 virus infection Status: Acute (5) Elevated troponin Status: Acute (6) Hypoxia Status: Acute (7) Renal insufficiency Status: Acute Current Medications Current Medications Current Medications Enoxaparin Sodium (Lovenox Per Pharmacy Treatment Dosing) 1 each PRN DAILY PRN MC SEE COMMENTS; Start 01/12/20 at 10:45 Enoxaparin Sodium (Lovenox 80mg Syringe) 80 mg Q12HR SQ Last administered on 01/12/20at 13:01; Start 01/12/20 at 11:00 Sodium Chloride 1,000 ml @ 100 mls/hr Q10H IV Last administered on 01/12/20at 13:02; Start 01/12/20 at 10:57; Stop 01/13/20 at 10:56 Levofloxacin/ Dextrose (Levaquin Per Pharmacy) 1 each PRN DAILY PRN MC SEE COMMENTS; Start 01/12/20 at 12:30 Levofloxacin/ Dextrose 150 ml @ 100 mls/hr 1X ONCE IV Last administered on 01/12/20at 13:02; Start 01/12/20 at 12:45; Stop 01/12/20 at 14:14 Levofloxacin/ Dextrose 150 ml @ 100 mls/hr Q48H IV ; Start 01/14/20 at 09:00 Active Scripts Active [place] (Sodium Chloride) 104 Ml [place] 104 Ml NS QID Levaquin (Levofloxacin) 750 Mg Tablet 750 Mg PO DAILY 7 Days Levaquin (Levofloxacin) 500 Mg Tablet 1 Tab PO DAILY Reported Tramadol Hcl 50 Mg Tablet 1 Tab PO BID Diovan Hct 160-12.5 Mg Tab (Valsartan/Hydrochlorothiazide) 1 Each Tablet 1 Tab PO DAILY Norvasc (Amlodipine Besylate) 10 Mg Tablet 10 Mg PO DAILY Allergies Allergies: Coded Allergies: Penicillins (Verified Allergy, Intermediate, RASH, 11/15/17) ROS Review of System unable, pt not responsive appropriately verbal, moans at questions, Physical Exam General: Cooperative, moderate distress, Other (not talkative, cannot follow commands, moans, ) HEENT: Atraumatic, PERRLA Lungs: Clear to auscultation Heart: RRR, irregularly irregular Abdomen: Normal bowel sounds, Soft Extremities: No clubbing, No edema Skin: No significant lesion Neuro: Other Psych/Mental Status: Other (lethargic, confused, agiated, ) Vitals Vitals Vital Signs Date Time Temp Pulse Resp B/P (MAP) Pulse Ox O2 Delivery O2 Flow Rate FiO2 01/12/20 10:30 104 20 100 01/12/20 09:15 97.4 103/63 (76) NonRebreather Mask 15.0 97.4 Labs Labs Laboratory Tests Test 01/12/20 09:20 01/12/20 10:10 Sodium Level 140 mmol/L (136-145) Potassium Level 3.9 mmol/L (3.5-5.1) Chloride Level 102 mmol/L (98-107) Carbon Dioxide Level 27 mmol/L (21-32) Anion Gap 11 (6-14) Blood Urea Nitrogen 33 mg/dL (7-20) Creatinine 1.1 mg/dL (0.6-1.0) Estimated GFR (Cockcroft-Gault) 56.9 BUN/Creatinine Ratio 30 (6-20) Glucose Level 137 mg/dL (70-99) Lactic Acid Level 2.0 mmol/L (0.4-2.0) Calcium Level 9.5 mg/dL (8.5-10.1) Total Bilirubin 0.9 mg/dL (0.2-1.0) Aspartate Amino Transf (AST/SGOT) 74 U/L (15-37) Alanine Aminotransferase (ALT/SGPT) 27 U/L (14-59) Alkaline Phosphatase 83 U/L (46-116) Creatine Kinase 242 U/L (26-192) Troponin I Quantitative 3.202 ng/mL (0.000-0.055) XU-Cem-T-Type Natriuretic Peptide 8631 pg/mL (0-449) Total Protein 8.1 g/dL (6.4-8.2) Albumin 2.4 g/dL (3.4-5.0) Albumin/Globulin Ratio 0.4 (1.0-1.7) White Blood Count 8.5 x10^3/uL (4.0-11.0) Red Blood Count 4.75 x10^6/uL (3.50-5.40) Hemoglobin 14.6 g/dL (12.0-15.5) Hematocrit 43.9 % (36.0-47.0) Mean Corpuscular Volume 92 fL (79-100) Mean Corpuscular Hemoglobin 31 pg (25-35) Mean Corpuscular Hemoglobin Concent 33 g/dL (31-37) Red Cell Distribution Width 14.1 % (11.5-14.5) Platelet Count 99 x10^3/uL (140-400) Neutrophils (%) (Auto) 88 % (31-73) Lymphocytes (%) (Auto) 6 % (24-48) Monocytes (%) (Auto) 6 % (0-9) Eosinophils (%) (Auto) 0 % (0-3) Basophils (%) (Auto) 0 % (0-3) Neutrophils # (Auto) 7.5 x10^3/uL (1.8-7.7) Lymphocytes # (Auto) 0.5 x10^3/uL (1.0-4.8) Monocytes # (Auto) 0.5 x10^3/uL (0.0-1.1) Eosinophils # (Auto) 0.0 x10^3/uL (0.0-0.7) Basophils # (Auto) 0.0 x10^3/uL (0.0-0.2) Segmented Neutrophils % 85 % (35-66) Band Neutrophils % 5 % (0-9) Lymphocytes % 4 % (24-48) Atypical Lymphocytes % (Manual) 2 % (0-0) Monocytes % 4 % (0-10) Platelet Estimate Decreased (ADEQUATE) Large Platelets Few Prothrombin Time 15.2 SEC (11.7-14.0) Prothromb Time International Ratio 1.2 (0.8-1.1) Laboratory Tests Test 01/12/20 09:20 01/12/20 10:10 Sodium Level 140 mmol/L (136-145) Potassium Level 3.9 mmol/L (3.5-5.1) Chloride Level 102 mmol/L (98-107) Carbon Dioxide Level 27 mmol/L (21-32) Anion Gap 11 (6-14) Blood Urea Nitrogen 33 mg/dL (7-20) Creatinine 1.1 mg/dL (0.6-1.0) Estimated GFR (Cockcroft-Gault) 56.9 BUN/Creatinine Ratio 30 (6-20) Glucose Level 137 mg/dL (70-99) Lactic Acid Level 2.0 mmol/L (0.4-2.0) Calcium Level 9.5 mg/dL (8.5-10.1) Total Bilirubin 0.9 mg/dL (0.2-1.0) Aspartate Amino Transf (AST/SGOT) 74 U/L (15-37) Alanine Aminotransferase (ALT/SGPT) 27 U/L (14-59) Alkaline Phosphatase 83 U/L (46-116) Creatine Kinase 242 U/L (26-192) Troponin I Quantitative 3.202 ng/mL (0.000-0.055) TK-Mjg-I-Type Natriuretic Peptide 8631 pg/mL (0-449) Total Protein 8.1 g/dL (6.4-8.2) Albumin 2.4 g/dL (3.4-5.0) Albumin/Globulin Ratio 0.4 (1.0-1.7) White Blood Count 8.5 x10^3/uL (4.0-11.0) Red Blood Count 4.75 x10^6/uL (3.50-5.40) Hemoglobin 14.6 g/dL (12.0-15.5) Hematocrit 43.9 % (36.0-47.0) Mean Corpuscular Volume 92 fL (79-100) Mean Corpuscular Hemoglobin 31 pg (25-35) Mean Corpuscular Hemoglobin Concent 33 g/dL (31-37) Red Cell Distribution Width 14.1 % (11.5-14.5) Platelet Count 99 x10^3/uL (140-400) Neutrophils (%) (Auto) 88 % (31-73) Lymphocytes (%) (Auto) 6 % (24-48) Monocytes (%) (Auto) 6 % (0-9) Eosinophils (%) (Auto) 0 % (0-3) Basophils (%) (Auto) 0 % (0-3) Neutrophils # (Auto) 7.5 x10^3/uL (1.8-7.7) Lymphocytes # (Auto) 0.5 x10^3/uL (1.0-4.8) Monocytes # (Auto) 0.5 x10^3/uL (0.0-1.1) Eosinophils # (Auto) 0.0 x10^3/uL (0.0-0.7) Basophils # (Auto) 0.0 x10^3/uL (0.0-0.2) Segmented Neutrophils % 85 % (35-66) Band Neutrophils % 5 % (0-9) Lymphocytes % 4 % (24-48) Atypical Lymphocytes % (Manual) 2 % (0-0) Monocytes % 4 % (0-10) Platelet Estimate Decreased (ADEQUATE) Large Platelets Few Prothrombin Time 15.2 SEC (11.7-14.0) Prothromb Time International Ratio 1.2 (0.8-1.1) VTE Prophylaxis Ordered VTE Prophylaxis Devices: Contraindicated VTE Pharmacological Prophylaxi: Yes Assessment/Plan Assessment/Plan altered mental status, on dementia acute hypoxic respiratory failure, with bilat infiltrates, acute lung injury, high risk of ARDS COVID-19 positive, sepsis pain, possible chest pain, troponin consistent with NSTEMI, consult CV, treatment lovenox htn, almost low, will hold home bp meds, may need tochange to b-eloisa admit, full code PABLITO LOO MD Jan 12, 2020 14:02
[2020-01-12] MEDS ORDERED: GUAI473L15 PO (14:07)
[2020-01-12] MEDS ORDERED: ASPI81TA50 PO (14:07)
[2020-01-12] MEDS ORDERED: TRAM50TA PO (14:07)
[2020-01-12] MEDS ORDERED: DICL100G18 TP (14:07)
[2020-01-12] MEDS ORDERED: ACET500T68 PO (14:07)
[2020-01-12] MEDS ORDERED: AMLO5TAB10 PO (14:07)
[2020-01-12] MEDS ORDERED: POTA20TA4 PO (14:07)
[2020-01-12] MEDS ORDERED: FAMO20TA5 PO (14:07)
[2020-01-12] MEDS ORDERED: CETI10TA16 PO (14:07)
[2020-01-12] MEDS ORDERED: ALPR0.254 PO (14:07)
[2020-01-12] MEDS ORDERED: MELA1TAB9 PO (14:07)
[2020-01-12] MEDS ORDERED: FURO20TA3 PO (14:07)
[2020-01-12] MEDS: AMINO AC 3%/ELECTROLYTE/GLYCER 1,000 ML IV SCH (14:13)
[2020-01-12 15:30] VITALS: BP 114/77
[2020-01-12 16:26] LABS: CHOLESTEROL/HDL RATIO 10.9
[2020-01-12] MEDS: ASPIRIN RECTAL 300 MG SUPP. PR SCH (17:15)
[2020-01-12] MEDS: METOPROLOL TARTRATE 5 MG/5 ML VIAL. IVP SCH ×2 (17:16→23:38)
[2020-01-12 19:00] VITALS: BP 108/75
[2020-01-12 20:10] LABS: BILIRUBIN,URINE MODERATE (NEG); CLARITY,URINE CLEAR; COLOR,URINE AMBER; NITRITE,URINE NEGATIVE (NEG); PH,URINE 5.5 (<5.0-8.0); PROTEIN,URINE 100 mg/dL (NEG-TRACE)
[2020-01-12 20:14] LABS: BACTERIA,URINE FEW /HPF (0-FEW)
[2020-01-12 20:15] LABS: RBC,URINE OCC /HPF (0-2)
[2020-01-12 20:18] LABS: GRANULAR CASTS,URINE FEW /HPF; HYALINE CASTS, URINE FEW /HPF
[2020-01-12 23:32] VITALS: BP 142/83
[2020-01-13 03:00] VITALS: BP 116/77
[2020-01-13 04:24] LABS: BASO % 1 % (0-3); EOS % 0 % (0-3); HEMATOCRIT 40.6 % (36.0-47.0); HEMOGLOBIN 13.6 g/dL (12.0-15.5); LYMPH # 0.6 x10^3/uL (1.0-4.8); LYMPH % 9 % (24-48); MEAN CORPUSCULAR HEMOGLOBIN 31 pg (25-35); MEAN CORPUSCULAR HGB CONC 34 g/dL (31-37); MEAN CORPUSCULAR VOLUME 92 fL (79-100); MONO # 0.3 x10^3/uL (0.0-1.1); MONO % 4 % (0-9); NEUT # 6.4 x10^3/uL (1.8-7.7); NEUT % 86 % (31-73); PLATELET COUNT 119 x10^3/uL (140-400); RED BLOOD COUNT 4.41 x10^6/uL (3.50-5.40); RED CELL DISTRIBUTION WIDTH 14.3 % (11.5-14.5); WHITE BLOOD COUNT 7.4 x10^3/uL (4.0-11.0)
[2020-01-13 04:42] LABS: ALBUMIN/GLOBULIN RATIO 0.4 (1.0-1.7); CALCIUM 8.7 mg/dL (8.5-10.1); CREATININE 1.1 mg/dL (0.6-1.0); GFR 56.9; POTASSIUM 3.8 mmol/L (3.5-5.1); TOTAL BILIRUBIN 0.7 mg/dL (0.2-1.0); TOTAL PROTEIN 7.2 g/dL (6.4-8.2)
[2020-01-13] MEDS: METOPROLOL TARTRATE 5 MG/5 ML VIAL. IVP SCH ×2 (05:18→14:56)
[2020-01-13] MEDS: AMINO AC 3%/ELECTROLYTE/GLYCER 1,000 ML IV SCH (05:20)
[2020-01-13 07:00] VITALS: BP 131/67
--- NOTE | 2020-01-13 07:08 | NUR ---
IP: Per Dr. Jiménez pt is COVID + arriving from [place] which is in an outbreak of COVID. Pt to be in airborne/contact precautions using a face shield.
[2020-01-13] MEDS ORDERED: amLODIPine BESYLATE 10 MG TABLET PO SCH (09:00)
[2020-01-13] MEDS ORDERED: NON FORMULARY ITEM (Valsartan/Hydrochlorothiazide (Diovan Hct 160-12.5 Mg Tab) 1 TAB) PO SCH (09:00)
--- NOTE | 2020-01-13 10:16 | PDOC ---
PROGRESS NOTES Chief Complaint Chief Complaint Acute respiratory failure secondary to viral pneuonia, COVID +. Resident of [place]. CXR with bilateral infiltrates as expected from covid infection NSTEMI secondary most likely to physical burden from above mentioned infectious process; EKG with ST. Non-specific ST/T-wave changes. Most probably type II, demand ischemia in setting of COVID. History of essential Hypertension; currently low BP Metabolic Encephalopathy with h/o dementia Acute renal failure vasomotor etiology most likely Plan: Recommend medical management given advanced age, comorbidities, and COVID + Follow blood pressure closely follow recommendations from cardiology History of Present Illness History of Present Illness Patient with no acute events overnight, quantitative consultant recommendations noted Vitals Vitals Vital Signs Date Time Temp Pulse Resp B/P (MAP) Pulse Ox O2 Delivery O2 Flow Rate FiO2 01/13/20 07:00 99.1 105 131/67 (88) 99 Nasal Cannula 9.0 99.1 01/13/20 03:00 18 Physical Exam General: No acute distress Heart: Regular rate Lungs: Crackles Abdomen: Normal bowel sounds, Soft Extremities: No edema Skin: No significant lesion Labs LABS Laboratory Tests Test 01/12/20 10:10 01/12/20 13:45 01/12/20 14:50 01/12/20 17:20 White Blood Count 8.5 x10^3/uL (4.0-11.0) Red Blood Count 4.75 x10^6/uL (3.50-5.40) Hemoglobin 14.6 g/dL (12.0-15.5) Hematocrit 43.9 % (36.0-47.0) Mean Corpuscular Volume 92 fL (79-100) Mean Corpuscular Hemoglobin 31 pg (25-35) Mean Corpuscular Hemoglobin Concent 33 g/dL (31-37) Red Cell Distribution Width 14.1 % (11.5-14.5) Platelet Count 99 x10^3/uL (140-400) Neutrophils (%) (Auto) 88 % (31-73) Lymphocytes (%) (Auto) 6 % (24-48) Monocytes (%) (Auto) 6 % (0-9) Eosinophils (%) (Auto) 0 % (0-3) Basophils (%) (Auto) 0 % (0-3) Neutrophils # (Auto) 7.5 x10^3/uL (1.8-7.7) Lymphocytes # (Auto) 0.5 x10^3/uL (1.0-4.8) Monocytes # (Auto) 0.5 x10^3/uL (0.0-1.1) Eosinophils # (Auto) 0.0 x10^3/uL (0.0-0.7) Basophils # (Auto) 0.0 x10^3/uL (0.0-0.2) Segmented Neutrophils % 85 % (35-66) Band Neutrophils % 5 % (0-9) Lymphocytes % 4 % (24-48) Atypical Lymphocytes % (Manual) 2 % (0-0) Monocytes % 4 % (0-10) Platelet Estimate Decreased (ADEQUATE) Large Platelets Few Prothrombin Time 15.2 SEC (11.7-14.0) Prothromb Time International Ratio 1.2 (0.8-1.1) Troponin I Quantitative 3.016 ng/mL (0.000-0.055) 2.757 ng/mL (0.000-0.055) Urine Collection Type Unknown Urine Color [place] Urine Clarity Clear Urine pH 5.5 (<5.0-8.0) Urine Specific [place] 1.025 (1.000-1.030) Urine Protein 100 mg/dL (NEG-TRACE) Urine Glucose (UA) Negative mg/dL (NEG) Urine Ketones (Stick) Trace mg/dL (NEG) Urine Blood Negative (NEG) Urine Nitrite Negative (NEG) Urine Bilirubin Moderate (NEG) Urine Urobilinogen Dipstick 1.0 mg/dL (0.2 mg/dL) Urine Leukocyte Esterase Negative (NEG) Urine RBC Occ /HPF (0-2) Urine WBC 1-4 /HPF (0-4) Urine Bacteria Few /HPF (0-FEW) Urine Hyaline Casts Few /HPF Urine Granular Casts Few /HPF Urine Mucus Marked /LPF Test 01/13/20 04:10 White Blood Count 7.4 x10^3/uL (4.0-11.0) Red Blood Count 4.41 x10^6/uL (3.50-5.40) Hemoglobin 13.6 g/dL (12.0-15.5) Hematocrit 40.6 % (36.0-47.0) Mean Corpuscular Volume 92 fL (79-100) Mean Corpuscular Hemoglobin 31 pg (25-35) Mean Corpuscular Hemoglobin Concent 34 g/dL (31-37) Red Cell Distribution Width 14.3 % (11.5-14.5) Platelet Count 119 x10^3/uL (140-400) Neutrophils (%) (Auto) 86 % (31-73) Lymphocytes (%) (Auto) 9 % (24-48) Monocytes (%) (Auto) 4 % (0-9) Eosinophils (%) (Auto) 0 % (0-3) Basophils (%) (Auto) 1 % (0-3) Neutrophils # (Auto) 6.4 x10^3/uL (1.8-7.7) Lymphocytes # (Auto) 0.6 x10^3/uL (1.0-4.8) Monocytes # (Auto) 0.3 x10^3/uL (0.0-1.1) Eosinophils # (Auto) 0.0 x10^3/uL (0.0-0.7) Basophils # (Auto) 0.0 x10^3/uL (0.0-0.2) Sodium Level 140 mmol/L (136-145) Potassium Level 3.8 mmol/L (3.5-5.1) Chloride Level 104 mmol/L (98-107) Carbon Dioxide Level 29 mmol/L (21-32) Anion Gap 7 (6-14) Blood Urea Nitrogen 38 mg/dL (7-20) Creatinine 1.1 mg/dL (0.6-1.0) Estimated GFR (Cockcroft-Gault) 56.9 BUN/Creatinine Ratio 35 (6-20) Glucose Level 136 mg/dL (70-99) Calcium Level 8.7 mg/dL (8.5-10.1) Total Bilirubin 0.7 mg/dL (0.2-1.0) Aspartate Amino Transf (AST/SGOT) 49 U/L (15-37) Alanine Aminotransferase (ALT/SGPT) 23 U/L (14-59) Alkaline Phosphatase 72 U/L (46-116) Total Protein 7.2 g/dL (6.4-8.2) Albumin 2.0 g/dL (3.4-5.0) Albumin/Globulin Ratio 0.4 (1.0-1.7) Assessment and Plan Assessmemt and Plan Problems Medical Problems: (1) Altered level of consciousness Status: Acute (2) Bilateral pneumonia Status: Acute (3) CHF (congestive heart failure) Status: Acute (4) COVID-19 virus infection Status: Acute (5) Elevated troponin Status: Acute (6) Hypoxia Status: Acute (7) Renal insufficiency Status: Acute Comment Review of Relevant I have reviewed the following items alannah (where applicable) has been applied. Labs Laboratory Tests Test 01/12/20 09:20 01/12/20 10:10 01/12/20 13:45 01/12/20 14:50 Sodium Level 140 mmol/L (136-145) Potassium Level 3.9 mmol/L (3.5-5.1) Chloride Level 102 mmol/L (98-107) Carbon Dioxide Level 27 mmol/L (21-32) Anion Gap 11 (6-14) Blood Urea Nitrogen 33 mg/dL (7-20) Creatinine 1.1 mg/dL (0.6-1.0) Estimated GFR (Cockcroft-Gault) 56.9 BUN/Creatinine Ratio 30 (6-20) Glucose Level 137 mg/dL (70-99) Lactic Acid Level 2.0 mmol/L (0.4-2.0) Calcium Level 9.5 mg/dL (8.5-10.1) Total Bilirubin 0.9 mg/dL (0.2-1.0) Aspartate Amino Transf (AST/SGOT) 74 U/L (15-37) Alanine Aminotransferase (ALT/SGPT) 27 U/L (14-59) Alkaline Phosphatase 83 U/L (46-116) Creatine Kinase 242 U/L (26-192) Troponin I Quantitative 3.202 ng/mL (0.000-0.055) 3.016 ng/mL (0.000-0.055) ND-Gpv-T-Type Natriuretic Peptide 8631 pg/mL (0-449) Total Protein 8.1 g/dL (6.4-8.2) Albumin 2.4 g/dL (3.4-5.0) Albumin/Globulin Ratio 0.4 (1.0-1.7) Triglycerides Level 272 mg/dL (0-150) Cholesterol Level 240 mg/dL (0-200) LDL Cholesterol, Calculated 164 mg/dL (0-100) VLDL Cholesterol, Calculated 54 mg/dL (0-40) Non-HDL Cholesterol Calculated 218 mg/dL (0-129) HDL Cholesterol 22 mg/dL (40-60) Cholesterol/HDL Ratio 10.9 White Blood Count 8.5 x10^3/uL (4.0-11.0) Red Blood Count 4.75 x10^6/uL (3.50-5.40) Hemoglobin 14.6 g/dL (12.0-15.5) Hematocrit 43.9 % (36.0-47.0) Mean Corpuscular Volume 92 fL (79-100) Mean Corpuscular Hemoglobin 31 pg (25-35) Mean Corpuscular Hemoglobin Concent 33 g/dL (31-37) Red Cell Distribution Width 14.1 % (11.5-14.5) Platelet Count 99 x10^3/uL (140-400) Neutrophils (%) (Auto) 88 % (31-73) Lymphocytes (%) (Auto) 6 % (24-48) Monocytes (%) (Auto) 6 % (0-9) Eosinophils (%) (Auto) 0 % (0-3) Basophils (%) (Auto) 0 % (0-3) Neutrophils # (Auto) 7.5 x10^3/uL (1.8-7.7) Lymphocytes # (Auto) 0.5 x10^3/uL (1.0-4.8) Monocytes # (Auto) 0.5 x10^3/uL (0.0-1.1) Eosinophils # (Auto) 0.0 x10^3/uL (0.0-0.7) Basophils # (Auto) 0.0 x10^3/uL (0.0-0.2) Segmented Neutrophils % 85 % (35-66) Band Neutrophils % 5 % (0-9) Lymphocytes % 4 % (24-48) Atypical Lymphocytes % (Manual) 2 % (0-0) Monocytes % 4 % (0-10) Platelet Estimate Decreased (ADEQUATE) Large Platelets Few Prothrombin Time 15.2 SEC (11.7-14.0) Prothromb Time International Ratio 1.2 (0.8-1.1) Urine Collection Type Unknown Urine Color [place] Urine Clarity Clear Urine pH 5.5 (<5.0-8.0) Urine Specific [place] 1.025 (1.000-1.030) Urine Protein 100 mg/dL (NEG-TRACE) Urine Glucose (UA) Negative mg/dL (NEG) Urine Ketones (Stick) Trace mg/dL (NEG) Urine Blood Negative (NEG) Urine Nitrite Negative (NEG) Urine Bilirubin Moderate (NEG) Urine Urobilinogen Dipstick 1.0 mg/dL (0.2 mg/dL) Urine Leukocyte Esterase Negative (NEG) Urine RBC Occ /HPF (0-2) Urine WBC 1-4 /HPF (0-4) Urine Bacteria Few /HPF (0-FEW) Urine Hyaline Casts Few /HPF Urine Granular Casts Few /HPF Urine Mucus Marked /LPF Test 01/12/20 17:20 01/13/20 04:10 Troponin I Quantitative 2.757 ng/mL (0.000-0.055) White Blood Count 7.4 x10^3/uL (4.0-11.0) Red Blood Count 4.41 x10^6/uL (3.50-5.40) Hemoglobin 13.6 g/dL (12.0-15.5) Hematocrit 40.6 % (36.0-47.0) Mean Corpuscular Volume 92 fL (79-100) Mean Corpuscular Hemoglobin 31 pg (25-35) Mean Corpuscular Hemoglobin Concent 34 g/dL (31-37) Red Cell Distribution Width 14.3 % (11.5-14.5) Platelet Count 119 x10^3/uL (140-400) Neutrophils (%) (Auto) 86 % (31-73) Lymphocytes (%) (Auto) 9 % (24-48) Monocytes (%) (Auto) 4 % (0-9) Eosinophils (%) (Auto) 0 % (0-3) Basophils (%) (Auto) 1 % (0-3) Neutrophils # (Auto) 6.4 x10^3/uL (1.8-7.7) Lymphocytes # (Auto) 0.6 x10^3/uL (1.0-4.8) Monocytes # (Auto) 0.3 x10^3/uL (0.0-1.1) Eosinophils # (Auto) 0.0 x10^3/uL (0.0-0.7) Basophils # (Auto) 0.0 x10^3/uL (0.0-0.2) Sodium Level 140 mmol/L (136-145) Potassium Level 3.8 mmol/L (3.5-5.1) Chloride Level 104 mmol/L (98-107) Carbon Dioxide Level 29 mmol/L (21-32) Anion Gap 7 (6-14) Blood Urea Nitrogen 38 mg/dL (7-20) Creatinine 1.1 mg/dL (0.6-1.0) Estimated GFR (Cockcroft-Gault) 56.9 BUN/Creatinine Ratio 35 (6-20) Glucose Level 136 mg/dL (70-99) Calcium Level 8.7 mg/dL (8.5-10.1) Total Bilirubin 0.7 mg/dL (0.2-1.0) Aspartate Amino Transf (AST/SGOT) 49 U/L (15-37) Alanine Aminotransferase (ALT/SGPT) 23 U/L (14-59) Alkaline Phosphatase 72 U/L (46-116) Total Protein 7.2 g/dL (6.4-8.2) Albumin 2.0 g/dL (3.4-5.0) Albumin/Globulin Ratio 0.4 (1.0-1.7) Laboratory Tests Test 01/12/20 10:10 01/12/20 13:45 01/12/20 14:50 01/12/20 17:20 White Blood Count 8.5 x10^3/uL (4.0-11.0) Red Blood Count 4.75 x10^6/uL (3.50-5.40) Hemoglobin 14.6 g/dL (12.0-15.5) Hematocrit 43.9 % (36.0-47.0) Mean Corpuscular Volume 92 fL (79-100) Mean Corpuscular Hemoglobin 31 pg (25-35) Mean Corpuscular Hemoglobin Concent 33 g/dL (31-37) Red Cell Distribution Width 14.1 % (11.5-14.5) Platelet Count 99 x10^3/uL (140-400) Neutrophils (%) (Auto) 88 % (31-73) Lymphocytes (%) (Auto) 6 % (24-48) Monocytes (%) (Auto) 6 % (0-9) Eosinophils (%) (Auto) 0 % (0-3) Basophils (%) (Auto) 0 % (0-3) Neutrophils # (Auto) 7.5 x10^3/uL (1.8-7.7) Lymphocytes # (Auto) 0.5 x10^3/uL (1.0-4.8) Monocytes # (Auto) 0.5 x10^3/uL (0.0-1.1) Eosinophils # (Auto) 0.0 x10^3/uL (0.0-0.7) Basophils # (Auto) 0.0 x10^3/uL (0.0-0.2) Segmented Neutrophils % 85 % (35-66) Band Neutrophils % 5 % (0-9) Lymphocytes % 4 % (24-48) Atypical Lymphocytes % (Manual) 2 % (0-0) Monocytes % 4 % (0-10) Platelet Estimate Decreased (ADEQUATE) Large Platelets Few Prothrombin Time 15.2 SEC (11.7-14.0) Prothromb Time International Ratio 1.2 (0.8-1.1) Troponin I Quantitative 3.016 ng/mL (0.000-0.055) 2.757 ng/mL (0.000-0.055) Urine Collection Type Unknown Urine Color [place] Urine Clarity Clear Urine pH 5.5 (<5.0-8.0) Urine Specific [place] 1.025 (1.000-1.030) Urine Protein 100 mg/dL (NEG-TRACE) Urine Glucose (UA) Negative mg/dL (NEG) Urine Ketones (Stick) Trace mg/dL (NEG) Urine Blood Negative (NEG) Urine Nitrite Negative (NEG) Urine Bilirubin Moderate (NEG) Urine Urobilinogen Dipstick 1.0 mg/dL (0.2 mg/dL) Urine Leukocyte Esterase Negative (NEG) Urine RBC Occ /HPF (0-2) Urine WBC 1-4 /HPF (0-4) Urine Bacteria Few /HPF (0-FEW) Urine Hyaline Casts Few /HPF Urine Granular Casts Few /HPF Urine Mucus Marked /LPF Test 01/13/20 04:10 White Blood Count 7.4 x10^3/uL (4.0-11.0) Red Blood Count 4.41 x10^6/uL (3.50-5.40) Hemoglobin 13.6 g/dL (12.0-15.5) Hematocrit 40.6 % (36.0-47.0) Mean Corpuscular Volume 92 fL (79-100) Mean Corpuscular Hemoglobin 31 pg (25-35) Mean Corpuscular Hemoglobin Concent 34 g/dL (31-37) Red Cell Distribution Width 14.3 % (11.5-14.5) Platelet Count 119 x10^3/uL (140-400) Neutrophils (%) (Auto) 86 % (31-73) Lymphocytes (%) (Auto) 9 % (24-48) Monocytes (%) (Auto) 4 % (0-9) Eosinophils (%) (Auto) 0 % (0-3) Basophils (%) (Auto) 1 % (0-3) Neutrophils # (Auto) 6.4 x10^3/uL (1.8-7.7) Lymphocytes # (Auto) 0.6 x10^3/uL (1.0-4.8) Monocytes # (Auto) 0.3 x10^3/uL (0.0-1.1) Eosinophils # (Auto) 0.0 x10^3/uL (0.0-0.7) Basophils # (Auto) 0.0 x10^3/uL (0.0-0.2) Sodium Level 140 mmol/L (136-145) Potassium Level 3.8 mmol/L (3.5-5.1) Chloride Level 104 mmol/L (98-107) Carbon Dioxide Level 29 mmol/L (21-32) Anion Gap 7 (6-14) Blood Urea Nitrogen 38 mg/dL (7-20) Creatinine 1.1 mg/dL (0.6-1.0) Estimated GFR (Cockcroft-Gault) 56.9 BUN/Creatinine Ratio 35 (6-20) Glucose Level 136 mg/dL (70-99) Calcium Level 8.7 mg/dL (8.5-10.1) Total Bilirubin 0.7 mg/dL (0.2-1.0) Aspartate Amino Transf (AST/SGOT) 49 U/L (15-37) Alanine Aminotransferase (ALT/SGPT) 23 U/L (14-59) Alkaline Phosphatase 72 U/L (46-116) Total Protein 7.2 g/dL (6.4-8.2) Albumin 2.0 g/dL (3.4-5.0) Albumin/Globulin Ratio 0.4 (1.0-1.7) Microbiology 01/12/20 Blood Culture - Preliminary, Resulted NO GROWTH AFTER 1 DAY Medications Current Medications Enoxaparin Sodium (Lovenox Per Pharmacy Treatment Dosing) 1 each PRN DAILY PRN MC SEE COMMENTS; Start 01/12/20 at 10:45 Enoxaparin Sodium (Lovenox 80mg Syringe) 80 mg Q12HR SQ Last administered on 01/13/20at 08:05; Start 01/12/20 at 11:00 Sodium Chloride 1,000 ml @ 100 mls/hr Q10H IV Last administered on 01/12/20at 13:02; Start 01/12/20 at 10:57; Stop 01/12/20 at 16:19; Status DC Levofloxacin/ Dextrose (Levaquin Per Pharmacy) 1 each PRN DAILY PRN MC SEE COMMENTS; Start 01/12/20 at 12:30 Levofloxacin/ Dextrose 150 ml @ 100 mls/hr 1X ONCE IV Last administered on 01/12/20at 13:02; Start 01/12/20 at 12:45; Stop 01/12/20 at 14:14; Status DC Levofloxacin/ Dextrose 150 ml @ 100 mls/hr Q48H IV ; Start 01/14/20 at 09:00 Amlodipine Besylate (Norvasc) 10 mg DAILY PO ; Start 01/13/20 at 09:00; Status UNV Non-Formulary Medication (Valsartan/ Hydrochlorothiazide (Diovan Hct 160-12.5 Mg Tab)) 1 tab DAILY PO ; Start 01/13/20 at 09:00; Status UNV Fentanyl Citrate (Fentanyl 2ml Vial) 50 mcg PRN Q2HR PRN IVP PAIN Last administered on 01/12/20at 14:13; Start 01/12/20 at 14:00 Amino Acids/ Glycerin/ Electrolytes 1,000 ml @ 80 mls/hr [id number] IV Last administered on 01/13/20at 05:20; Start 01/12/20 at 14:00 Metoprolol Tartrate (Lopressor Vial) 2.5 mg Q6HRS IVP Last administered on 01/13/20at 05:18; Start 01/12/20 at 18:00 Aspirin (Aspirin Rectal Supp) 300 mg DAILY LA Last administered on 01/12/20at 17:15; Start 01/12/20 at 16:00 Lorazepam (Ativan Inj) 1 mg PRN Q4HRS PRN IVP ANXIETY / AGITATION Last administered on 01/12/20at 23:38; Start 01/12/20 at 15:30 Atorvastatin Calcium (Lipitor) 40 mg QHS PO ; Start 01/13/20 at 21:00 Active Scripts Active Reported Voltaren (Diclofenac Sodium) 100 Gm Gel..gram. 1 Gm TP PRN BID PRN 30 Days apply to affected area(s) Acetaminophen 500 Mg Tablet 1 Tab PO PRN Q4HRS PRN 15 Days Tramadol Hcl 50 Mg Tablet 25 Mg PO PRN Q4HRS PRN Potassium Chloride (Potassium Chloride) 20 Meq Tablet.er 20 Meq PO QODAY Melatonin 1 Mg Tablet 1 Tab PO QHS 30 Days Guaifenesin Ac Cough Syrup (Guaifenesin/Codeine Phosphate) 473 Ml Liquid 10 Ml PO PRN Q6HRS PRN MDD 60 Milliliter(s) 4 Days Furosemide 20 Mg Tablet 1 Tab PO QODAY Famotidine 20 Mg Tablet 20 Mg PO PRN BID PRN Cetirizine Hcl 10 Mg Tablet 1 Tab PO DAILY Aspir-Low (Aspirin) 81 Mg Tablet.dr 1 Tab PO DAILY Amlodipine Besylate 5 Mg Tablet 5 Mg PO DAILY Alprazolam 0.25 Mg Tablet 0.25 Mg PO PRN Q6HRS PRN Tramadol Hcl 50 Mg Tablet 1 Tab PO BID Vitals/I & O Vital Sign - Last 24 Hours 01/12/20 01/12/20 01/12/20 01/12/20 10:30 15:30 16:08 17:16 Temp 97.3 97.3 Pulse 104 92 92 Resp 20 18 B/P (MAP) 114/77 (89) 114/77 Pulse Ox 100 99 O2 Delivery Nasal Cannula Nasal Cannula O2 Flow Rate 7.0 01/12/20 01/12/20 01/12/20 01/12/20 19:00 19:45 23:32 23:38 Temp 97.7 96.5 97.7 96.5 Pulse 100 93 93 Resp 18 20 B/P (MAP) 108/75 (86) 142/83 (102) 142/83 Pulse Ox 100 95 O2 Delivery Nasal Cannula Nasal Cannula Nasal Cannula O2 Flow Rate 7.0 7.0 01/13/20 01/13/20 01/13/20 03:00 05:18 07:00 Temp 99.6 99.1 99.6 99.1 Pulse 103 103 105 Resp 18 B/P (MAP) 116/77 (90) 116/77 131/67 (88) Pulse Ox 100 99 O2 Delivery Nasal Cannula Nasal Cannula O2 Flow Rate 9.0 Intake and Output 01/12/20 01/12/20 01/13/20 15:00 23:00 07:00 Intake Total 0 ml Output Total 500 ml Balance -500 ml MARLO ROMERO MD Jan 13, 2020 10:16
[2020-01-13 11:00] VITALS: BP 119/68
--- NOTE | 2020-01-13 12:07 | PDOC ---
PULMONARY PROGRESS NOTES Subjective restless on 10 litres via mask Vitals Vital Signs Date Time Temp Pulse Resp B/P (MAP) Pulse Ox O2 Delivery O2 Flow Rate FiO2 01/13/20 07:00 99.1 105 131/67 (88) 99 Nasal Cannula 9.0 99.1 01/13/20 03:00 18 General: Lethargic HEENT: Other Lungs: Crackles Cardiovascular: S1 Abdomen: Soft, Non-tender Extremities: No Edema Skin: Warm Labs Laboratory Tests Test 01/12/20 09:20 01/12/20 10:10 01/12/20 13:45 01/12/20 14:50 Sodium Level 140 mmol/L (136-145) Potassium Level 3.9 mmol/L (3.5-5.1) Chloride Level 102 mmol/L (98-107) Carbon Dioxide Level 27 mmol/L (21-32) Anion Gap 11 (6-14) Blood Urea Nitrogen 33 mg/dL (7-20) Creatinine 1.1 mg/dL (0.6-1.0) Estimated GFR (Cockcroft-Gault) 56.9 BUN/Creatinine Ratio 30 (6-20) Glucose Level 137 mg/dL (70-99) Lactic Acid Level 2.0 mmol/L (0.4-2.0) Calcium Level 9.5 mg/dL (8.5-10.1) Total Bilirubin 0.9 mg/dL (0.2-1.0) Aspartate Amino Transf (AST/SGOT) 74 U/L (15-37) Alanine Aminotransferase (ALT/SGPT) 27 U/L (14-59) Alkaline Phosphatase 83 U/L (46-116) Creatine Kinase 242 U/L (26-192) Troponin I Quantitative 3.202 ng/mL (0.000-0.055) 3.016 ng/mL (0.000-0.055) NP-Uvh-Y-Type Natriuretic Peptide 8631 pg/mL (0-449) Total Protein 8.1 g/dL (6.4-8.2) Albumin 2.4 g/dL (3.4-5.0) Albumin/Globulin Ratio 0.4 (1.0-1.7) Triglycerides Level 272 mg/dL (0-150) Cholesterol Level 240 mg/dL (0-200) LDL Cholesterol, Calculated 164 mg/dL (0-100) VLDL Cholesterol, Calculated 54 mg/dL (0-40) Non-HDL Cholesterol Calculated 218 mg/dL (0-129) HDL Cholesterol 22 mg/dL (40-60) Cholesterol/HDL Ratio 10.9 White Blood Count 8.5 x10^3/uL (4.0-11.0) Red Blood Count 4.75 x10^6/uL (3.50-5.40) Hemoglobin 14.6 g/dL (12.0-15.5) Hematocrit 43.9 % (36.0-47.0) Mean Corpuscular Volume 92 fL (79-100) Mean Corpuscular Hemoglobin 31 pg (25-35) Mean Corpuscular Hemoglobin Concent 33 g/dL (31-37) Red Cell Distribution Width 14.1 % (11.5-14.5) Platelet Count 99 x10^3/uL (140-400) Neutrophils (%) (Auto) 88 % (31-73) Lymphocytes (%) (Auto) 6 % (24-48) Monocytes (%) (Auto) 6 % (0-9) Eosinophils (%) (Auto) 0 % (0-3) Basophils (%) (Auto) 0 % (0-3) Neutrophils # (Auto) 7.5 x10^3/uL (1.8-7.7) Lymphocytes # (Auto) 0.5 x10^3/uL (1.0-4.8) Monocytes # (Auto) 0.5 x10^3/uL (0.0-1.1) Eosinophils # (Auto) 0.0 x10^3/uL (0.0-0.7) Basophils # (Auto) 0.0 x10^3/uL (0.0-0.2) Segmented Neutrophils % 85 % (35-66) Band Neutrophils % 5 % (0-9) Lymphocytes % 4 % (24-48) Atypical Lymphocytes % (Manual) 2 % (0-0) Monocytes % 4 % (0-10) Platelet Estimate Decreased (ADEQUATE) Large Platelets Few Prothrombin Time 15.2 SEC (11.7-14.0) Prothromb Time International Ratio 1.2 (0.8-1.1) Urine Collection Type Unknown Urine Color [place] Urine Clarity Clear Urine pH 5.5 (<5.0-8.0) Urine Specific [place] 1.025 (1.000-1.030) Urine Protein 100 mg/dL (NEG-TRACE) Urine Glucose (UA) Negative mg/dL (NEG) Urine Ketones (Stick) Trace mg/dL (NEG) Urine Blood Negative (NEG) Urine Nitrite Negative (NEG) Urine Bilirubin Moderate (NEG) Urine Urobilinogen Dipstick 1.0 mg/dL (0.2 mg/dL) Urine Leukocyte Esterase Negative (NEG) Urine RBC Occ /HPF (0-2) Urine WBC 1-4 /HPF (0-4) Urine Bacteria Few /HPF (0-FEW) Urine Hyaline Casts Few /HPF Urine Granular Casts Few /HPF Urine Mucus Marked /LPF Test 01/12/20 17:20 01/13/20 04:10 Troponin I Quantitative 2.757 ng/mL (0.000-0.055) White Blood Count 7.4 x10^3/uL (4.0-11.0) Red Blood Count 4.41 x10^6/uL (3.50-5.40) Hemoglobin 13.6 g/dL (12.0-15.5) Hematocrit 40.6 % (36.0-47.0) Mean Corpuscular Volume 92 fL (79-100) Mean Corpuscular Hemoglobin 31 pg (25-35) Mean Corpuscular Hemoglobin Concent 34 g/dL (31-37) Red Cell Distribution Width 14.3 % (11.5-14.5) Platelet Count 119 x10^3/uL (140-400) Neutrophils (%) (Auto) 86 % (31-73) Lymphocytes (%) (Auto) 9 % (24-48) Monocytes (%) (Auto) 4 % (0-9) Eosinophils (%) (Auto) 0 % (0-3) Basophils (%) (Auto) 1 % (0-3) Neutrophils # (Auto) 6.4 x10^3/uL (1.8-7.7) Lymphocytes # (Auto) 0.6 x10^3/uL (1.0-4.8) Monocytes # (Auto) 0.3 x10^3/uL (0.0-1.1) Eosinophils # (Auto) 0.0 x10^3/uL (0.0-0.7) Basophils # (Auto) 0.0 x10^3/uL (0.0-0.2) Sodium Level 140 mmol/L (136-145) Potassium Level 3.8 mmol/L (3.5-5.1) Chloride Level 104 mmol/L (98-107) Carbon Dioxide Level 29 mmol/L (21-32) Anion Gap 7 (6-14) Blood Urea Nitrogen 38 mg/dL (7-20) Creatinine 1.1 mg/dL (0.6-1.0) Estimated GFR (Cockcroft-Gault) 56.9 BUN/Creatinine Ratio 35 (6-20) Glucose Level 136 mg/dL (70-99) Calcium Level 8.7 mg/dL (8.5-10.1) Total Bilirubin 0.7 mg/dL (0.2-1.0) Aspartate Amino Transf (AST/SGOT) 49 U/L (15-37) Alanine Aminotransferase (ALT/SGPT) 23 U/L (14-59) Alkaline Phosphatase 72 U/L (46-116) Total Protein 7.2 g/dL (6.4-8.2) Albumin 2.0 g/dL (3.4-5.0) Albumin/Globulin Ratio 0.4 (1.0-1.7) Laboratory Tests Test 01/12/20 13:45 01/12/20 14:50 01/12/20 17:20 01/13/20 04:10 Troponin I Quantitative 3.016 ng/mL (0.000-0.055) 2.757 ng/mL (0.000-0.055) Urine Collection Type Unknown Urine Color Claudette Urine Clarity Clear Urine pH 5.5 (<5.0-8.0) Urine Specific [place] 1.025 (1.000-1.030) Urine Protein 100 mg/dL (NEG-TRACE) Urine Glucose (UA) Negative mg/dL (NEG) Urine Ketones (Stick) Trace mg/dL (NEG) Urine Blood Negative (NEG) Urine Nitrite Negative (NEG) Urine Bilirubin Moderate (NEG) Urine Urobilinogen Dipstick 1.0 mg/dL (0.2 mg/dL) Urine Leukocyte Esterase Negative (NEG) Urine RBC Occ /HPF (0-2) Urine WBC 1-4 /HPF (0-4) Urine Bacteria Few /HPF (0-FEW) Urine Hyaline Casts Few /HPF Urine Granular Casts Few /HPF Urine Mucus Marked /LPF White Blood Count 7.4 x10^3/uL (4.0-11.0) Red Blood Count 4.41 x10^6/uL (3.50-5.40) Hemoglobin 13.6 g/dL (12.0-15.5) Hematocrit 40.6 % (36.0-47.0) Mean Corpuscular Volume 92 fL (79-100) Mean Corpuscular Hemoglobin 31 pg (25-35) Mean Corpuscular Hemoglobin Concent 34 g/dL (31-37) Red Cell Distribution Width 14.3 % (11.5-14.5) Platelet Count 119 x10^3/uL (140-400) Neutrophils (%) (Auto) 86 % (31-73) Lymphocytes (%) (Auto) 9 % (24-48) Monocytes (%) (Auto) 4 % (0-9) Eosinophils (%) (Auto) 0 % (0-3) Basophils (%) (Auto) 1 % (0-3) Neutrophils # (Auto) 6.4 x10^3/uL (1.8-7.7) Lymphocytes # (Auto) 0.6 x10^3/uL (1.0-4.8) Monocytes # (Auto) 0.3 x10^3/uL (0.0-1.1) Eosinophils # (Auto) 0.0 x10^3/uL (0.0-0.7) Basophils # (Auto) 0.0 x10^3/uL (0.0-0.2) Sodium Level 140 mmol/L (136-145) Potassium Level 3.8 mmol/L (3.5-5.1) Chloride Level 104 mmol/L (98-107) Carbon Dioxide Level 29 mmol/L (21-32) Anion Gap 7 (6-14) Blood Urea Nitrogen 38 mg/dL (7-20) Creatinine 1.1 mg/dL (0.6-1.0) Estimated GFR (Cockcroft-Gault) 56.9 BUN/Creatinine Ratio 35 (6-20) Glucose Level 136 mg/dL (70-99) Calcium Level 8.7 mg/dL (8.5-10.1) Total Bilirubin 0.7 mg/dL (0.2-1.0) Aspartate Amino Transf (AST/SGOT) 49 U/L (15-37) Alanine Aminotransferase (ALT/SGPT) 23 U/L (14-59) Alkaline Phosphatase 72 U/L (46-116) Total Protein 7.2 g/dL (6.4-8.2) Albumin 2.0 g/dL (3.4-5.0) Albumin/Globulin Ratio 0.4 (1.0-1.7) Medications Active Scripts Medications Dose Route/Sig Max Daily Dose Days Date Category Dose Instructions Voltaren (Diclofenac Sodium) 100 Gm Gel..gram. 1 Gm TP PRN BID PRN 30 01/12/20 Reported apply to affected area(s) Acetaminophen 500 Mg Tablet 1 Tab PO PRN Q4HRS PRN 15 01/12/20 Reported Tramadol Hcl 50 Mg Tablet 25 Mg PO PRN Q4HRS PRN 01/12/20 Reported Potassium Chloride (Potassium Chloride) 20 Meq Tablet.er 20 Meq PO QODAY 01/12/20 Reported Melatonin 1 Mg Tablet 1 Tab PO QHS 30 01/12/20 Reported Guaifenesin Ac Cough Syrup (Guaifenesin/Codeine Phosphate) 473 Ml Liquid 10 Ml PO PRN Q6HRS PRN MDD 60 Milliliter(s) 4 01/12/20 Reported Furosemide 20 Mg Tablet 1 Tab PO QODAY 01/12/20 Reported Famotidine 20 Mg Tablet 20 Mg PO PRN BID PRN 01/12/20 Reported Cetirizine Hcl 10 Mg Tablet 1 Tab PO DAILY 01/12/20 Reported Aspir-Low (Aspirin) 81 Mg Tablet.dr 1 Tab PO DAILY 01/12/20 Reported Amlodipine Besylate 5 Mg Tablet 5 Mg PO DAILY 01/12/20 Reported Alprazolam 0.25 Mg Tablet 0.25 Mg PO PRN Q6HRS PRN 01/12/20 Reported Tramadol Hcl 50 Mg Tablet 1 Tab PO BID 11/15/17 Reported Impression . 1. Acute hypoxic respiratory failure, likely secondary to COVID-19 pneumonia. 2. Abnormal chest x-ray with extensive left lung infiltrate and minimal right lung infiltrate, likely consistent with pneumonia. Highly likely viral pneumonia, but cannot exclude underlying superimposed bacterial pneumonia. 3. Abnormal troponin could be COVID-induced cardiac injury versus [id number] infarction. Cardiology is following. 4. Encephalopathy secondary to multifactorial etiologies. Plan . 1. Continue with present oxygen to keep saturations 94 and above with wean FiO2. clinically worse. on 10 litre FIO2 2. broad-spectrum antibiotics. 3. We will hold off on hydroxychloroquine due to underlying suspected ischemia and risk for QTC prolongation. 4. Full dose Lovenox per Cardiology. 5. Follow Cardiology recommendations. 6. Echo per Cardiology. 7. Discussed with RN. / would rec DNR and comfort care ALFONSO GARCIA MD Jan 13, 2020 12:07
--- NOTE | 2020-01-13 12:33 | PDOC ---
CARDIO Progress Notes Date and Time Date of Service 01/13/2020 Time of Evaluation 1100 Subjective Subjective: Other (confused) Vitals Vitals Vital Signs Date Time Temp Pulse Resp B/P (MAP) Pulse Ox O2 Delivery O2 Flow Rate FiO2 01/13/20 07:00 99.1 105 131/67 (88) 99 Nasal Cannula 9.0 99.1 01/13/20 03:00 18 Weight Weight [ ] Input and Output Intake and Output Intake and Output 01/13/20 07:00 Intake Total 0 ml Output Total 500 ml Balance -500 ml Intake Oral 0 ml Output Urine Total 500 ml Laboratory Labs Laboratory Tests Test 01/12/20 13:45 01/12/20 14:50 01/12/20 17:20 01/13/20 04:10 Troponin I Quantitative 3.016 ng/mL (0.000-0.055) 2.757 ng/mL (0.000-0.055) Urine Collection Type Unknown Urine Color Claudette Urine Clarity Clear Urine pH 5.5 (<5.0-8.0) Urine Specific [place] 1.025 (1.000-1.030) Urine Protein 100 mg/dL (NEG-TRACE) Urine Glucose (UA) Negative mg/dL (NEG) Urine Ketones (Stick) Trace mg/dL (NEG) Urine Blood Negative (NEG) Urine Nitrite Negative (NEG) Urine Bilirubin Moderate (NEG) Urine Urobilinogen Dipstick 1.0 mg/dL (0.2 mg/dL) Urine Leukocyte Esterase Negative (NEG) Urine RBC Occ /HPF (0-2) Urine WBC 1-4 /HPF (0-4) Urine Bacteria Few /HPF (0-FEW) Urine Hyaline Casts Few /HPF Urine Granular Casts Few /HPF Urine Mucus Marked /LPF White Blood Count 7.4 x10^3/uL (4.0-11.0) Red Blood Count 4.41 x10^6/uL (3.50-5.40) Hemoglobin 13.6 g/dL (12.0-15.5) Hematocrit 40.6 % (36.0-47.0) Mean Corpuscular Volume 92 fL (79-100) Mean Corpuscular Hemoglobin 31 pg (25-35) Mean Corpuscular Hemoglobin Concent 34 g/dL (31-37) Red Cell Distribution Width 14.3 % (11.5-14.5) Platelet Count 119 x10^3/uL (140-400) Neutrophils (%) (Auto) 86 % (31-73) Lymphocytes (%) (Auto) 9 % (24-48) Monocytes (%) (Auto) 4 % (0-9) Eosinophils (%) (Auto) 0 % (0-3) Basophils (%) (Auto) 1 % (0-3) Neutrophils # (Auto) 6.4 x10^3/uL (1.8-7.7) Lymphocytes # (Auto) 0.6 x10^3/uL (1.0-4.8) Monocytes # (Auto) 0.3 x10^3/uL (0.0-1.1) Eosinophils # (Auto) 0.0 x10^3/uL (0.0-0.7) Basophils # (Auto) 0.0 x10^3/uL (0.0-0.2) Sodium Level 140 mmol/L (136-145) Potassium Level 3.8 mmol/L (3.5-5.1) Chloride Level 104 mmol/L (98-107) Carbon Dioxide Level 29 mmol/L (21-32) Anion Gap 7 (6-14) Blood Urea Nitrogen 38 mg/dL (7-20) Creatinine 1.1 mg/dL (0.6-1.0) Estimated GFR (Cockcroft-Gault) 56.9 BUN/Creatinine Ratio 35 (6-20) Glucose Level 136 mg/dL (70-99) Calcium Level 8.7 mg/dL (8.5-10.1) Total Bilirubin 0.7 mg/dL (0.2-1.0) Aspartate Amino Transf (AST/SGOT) 49 U/L (15-37) Alanine Aminotransferase (ALT/SGPT) 23 U/L (14-59) Alkaline Phosphatase 72 U/L (46-116) Total Protein 7.2 g/dL (6.4-8.2) Albumin 2.0 g/dL (3.4-5.0) Albumin/Globulin Ratio 0.4 (1.0-1.7) Microbiology Micro Microbiology 01/12/20 Blood Culture - Preliminary, Resulted NO GROWTH AFTER 1 DAY Physical Exam Heart: RRR (SR/ST with intermittent PVCs), irregularly irregular Other Exams limited: pt confused and moans at times. Positive for Dementia. Discussed with RN, pt continue to have low grade fever. Covid+ Assessment Assessment 1. Acute respiratory failure with current Covid-19 PNA and diastolic CHF. still having fever 2. NSTEMI: suspect ischemia in addition. Peaked trop at 3.2 3. HLP 4. Encephalopathy with underlying dementia and hx of CVA. presently confused 5. HTN: controlled 6. EMANUEL vs CKD3 7. Reactive sinus tach. Recommendations 1. Follow pulmonary recommendations 2. Pt currently unable to take PO with known hx of dysphagia as well. Continue ASA per rectal. IV lopressor. Continue current lovenox dosing. 3. Will need to discuss goals of care with family presently full code. Significant chronic comorobid conditions with notable dementia and advanced age. Conservative management per cardiac standpoint. 4. Limited TTE will be considered 5. Check Mg and will replace as warranted GARCIA SOTO APRN Jan 13, 2020 12:33
--- NOTE | 2020-01-13 14:34 | NUR ---
SS following for discharge planning. SS reviewed pt chart and discussed with pt RN. Pt is [id number] Pt's RN reporting that pt needing evaluation for inpatient hospice. SS phoned and faxed referral to [facility], ; fax [phone]. SS will continue to follow for planning.
[2020-01-13] MEDS: ASPIRIN RECTAL 300 MG SUPP. PR SCH (14:57)
[2020-01-13 15:00] VITALS: BP 126/64
[2020-01-13] MEDS: MORPHINE SULFATE 2 MG/ML VIAL. IV PRN (16:59)
[2020-01-13] MEDS ORDERED: BISACODYL 10 MG SUPP.RECT. PR PRN (17:00)
[2020-01-13] MEDS ORDERED: SCOPOLAMINE 1.5MG PATCH. TD SCH (17:00)
[2020-01-13] MEDS ORDERED: ACETAMINOPHEN 650 MG SUPP.RECT. PR PRN (17:00)
[2020-01-13 19:05] VITALS: BP 137/79
[2020-01-13] MEDS ORDERED: ATORVASTATIN CALCIUM 40 MG TABLET. PO SCH (21:00)
[2020-01-13 23:38] VITALS: BP 122/77
[2020-01-14 03:50] VITALS: BP 143/77
[2020-01-14] MEDS: MORPHINE SULFATE 2 MG/ML VIAL. IV PRN ×2 (06:18→09:41)
[2020-01-14 07:00] VITALS: BP 112/60
--- NOTE | 2020-01-14 10:27 | NUR ---
Patient is scheduled for inpatient Hospice today. Awaiting discharge instructions from Dr. Dunlap.
[2020-01-14 11:02] VITALS: BP 116/77
--- NOTE | 2020-01-14 11:15 | NUR ---
SS following up with discharge planning. Referral was faxed to [facility], ; fax [phone], yesterday for inpatient hospice per request. Pt's family met with hospice last night and agreeable to hospice and requesting hospice services. Pt's family face timed pt last night and stated there goodbyes to pt. [facility] reported that they signed consents with family last night and communicated with RN, Parisa, once consents were signed and pt was admitted to hospice. SS discussed with physician this morning. Pt to be discharged and be admitted to inpatient hospice. RN notified.
--- NOTE | 2020-01-14 11:43 | NUR ---
Patient discharge on current account per Dr. Dunlap for Inpatient Hospice.
--- NOTE | 2020-01-14 11:55 | PDOC ---
PULMONARY PROGRESS NOTES Subjective NO VERBAL on 5 litres Vitals Vital Signs Date Time Temp Pulse Resp B/P (MAP) Pulse Ox O2 Delivery O2 Flow Rate FiO2 01/14/20 11:02 100.1 110 30 116/77 (90) 97 Nasal Cannula 5.0 100.1 General: Lethargic Lungs: Crackles Cardiovascular: S1 Abdomen: Soft, Non-tender Extremities: No Edema Skin: Warm Labs Laboratory Tests Test 01/12/20 13:45 01/12/20 14:50 01/12/20 17:20 01/13/20 04:10 Troponin I Quantitative 3.016 ng/mL (0.000-0.055) 2.757 ng/mL (0.000-0.055) Urine Collection Type Unknown Urine Color Claudette Urine Clarity Clear Urine pH 5.5 (<5.0-8.0) Urine Specific [place] 1.025 (1.000-1.030) Urine Protein 100 mg/dL (NEG-TRACE) Urine Glucose (UA) Negative mg/dL (NEG) Urine Ketones (Stick) Trace mg/dL (NEG) Urine Blood Negative (NEG) Urine Nitrite Negative (NEG) Urine Bilirubin Moderate (NEG) Urine Urobilinogen Dipstick 1.0 mg/dL (0.2 mg/dL) Urine Leukocyte Esterase Negative (NEG) Urine RBC Occ /HPF (0-2) Urine WBC 1-4 /HPF (0-4) Urine Bacteria Few /HPF (0-FEW) Urine Hyaline Casts Few /HPF Urine Granular Casts Few /HPF Urine Mucus Marked /LPF White Blood Count 7.4 x10^3/uL (4.0-11.0) Red Blood Count 4.41 x10^6/uL (3.50-5.40) Hemoglobin 13.6 g/dL (12.0-15.5) Hematocrit 40.6 % (36.0-47.0) Mean Corpuscular Volume 92 fL (79-100) Mean Corpuscular Hemoglobin 31 pg (25-35) Mean Corpuscular Hemoglobin Concent 34 g/dL (31-37) Red Cell Distribution Width 14.3 % (11.5-14.5) Platelet Count 119 x10^3/uL (140-400) Neutrophils (%) (Auto) 86 % (31-73) Lymphocytes (%) (Auto) 9 % (24-48) Monocytes (%) (Auto) 4 % (0-9) Eosinophils (%) (Auto) 0 % (0-3) Basophils (%) (Auto) 1 % (0-3) Neutrophils # (Auto) 6.4 x10^3/uL (1.8-7.7) Lymphocytes # (Auto) 0.6 x10^3/uL (1.0-4.8) Monocytes # (Auto) 0.3 x10^3/uL (0.0-1.1) Eosinophils # (Auto) 0.0 x10^3/uL (0.0-0.7) Basophils # (Auto) 0.0 x10^3/uL (0.0-0.2) Sodium Level 140 mmol/L (136-145) Potassium Level 3.8 mmol/L (3.5-5.1) Chloride Level 104 mmol/L (98-107) Carbon Dioxide Level 29 mmol/L (21-32) Anion Gap 7 (6-14) Blood Urea Nitrogen 38 mg/dL (7-20) Creatinine 1.1 mg/dL (0.6-1.0) Estimated GFR (Cockcroft-Gault) 56.9 BUN/Creatinine Ratio 35 (6-20) Glucose Level 136 mg/dL (70-99) Calcium Level 8.7 mg/dL (8.5-10.1) Magnesium Level 2.0 mg/dL (1.8-2.4) Total Bilirubin 0.7 mg/dL (0.2-1.0) Aspartate Amino Transf (AST/SGOT) 49 U/L (15-37) Alanine Aminotransferase (ALT/SGPT) 23 U/L (14-59) Alkaline Phosphatase 72 U/L (46-116) Total Protein 7.2 g/dL (6.4-8.2) Albumin 2.0 g/dL (3.4-5.0) Albumin/Globulin Ratio 0.4 (1.0-1.7) Medications Active Scripts Medications Dose Route/Sig Max Daily Dose Days Date Category Dose Instructions Voltaren (Diclofenac Sodium) 100 Gm Gel..gram. 1 Gm TP PRN BID PRN 30 01/12/20 Reported apply to affected area(s) Acetaminophen 500 Mg Tablet 1 Tab PO PRN Q4HRS PRN 15 01/12/20 Reported Tramadol Hcl 50 Mg Tablet 25 Mg PO PRN Q4HRS PRN 01/12/20 Reported Potassium Chloride (Potassium Chloride) 20 Meq Tablet.er 20 Meq PO QODAY 01/12/20 Reported Melatonin 1 Mg Tablet 1 Tab PO QHS 30 01/12/20 Reported Guaifenesin Ac Cough Syrup (Guaifenesin/Codeine Phosphate) 473 Ml Liquid 10 Ml PO PRN Q6HRS PRN MDD 60 Milliliter(s) 4 01/12/20 Reported Furosemide 20 Mg Tablet 1 Tab PO QODAY 01/12/20 Reported Famotidine 20 Mg Tablet 20 Mg PO PRN BID PRN 01/12/20 Reported Cetirizine Hcl 10 Mg Tablet 1 Tab PO DAILY 01/12/20 Reported Aspir-Low (Aspirin) 81 Mg Tablet.dr 1 Tab PO DAILY 01/12/20 Reported Amlodipine Besylate 5 Mg Tablet 5 Mg PO DAILY 01/12/20 Reported Alprazolam 0.25 Mg Tablet 0.25 Mg PO PRN Q6HRS PRN 01/12/20 Reported Tramadol Hcl 50 Mg Tablet 1 Tab PO BID 11/15/17 Reported Impression . 1. Acute hypoxic respiratory failure, likely secondary to COVID-19 pneumonia. 2. Abnormal chest x-ray with extensive left lung infiltrate and minimal right lung infiltrate, likely consistent with pneumonia. Highly likely viral pneumonia, but cannot exclude underlying superimposed bacterial pneumonia. 3. Abnormal troponin could be COVID-induced cardiac injury versus [id number] infarction. Cardiology is following. 4. Encephalopathy secondary to multifactorial etiologies. Plan . 1. Continue with present oxygen to keep saturations 94 and above 2. broad-spectrum antibiotics. 3. We will hold off on hydroxychloroquine due to underlying suspected ischemia and risk for QTC prolongation. 4. Lovenox per Cardiology. 5. Follow Cardiology recommendations. 6. Echo per Cardiology. 7. Discussed with RN. / would rec DNR and comfort care ALFONSO GARCIA MD Jan 14, 2020 11:55
== END 2020-01-14 11:47 | disposition hospice, inpatient (51) | DRG 871 ==
LOC: ER 08:54 → 6 SOUTH 09:45
PROVIDERS: ADMIT Internal Medicine; ATTEND Internal Medicine
DX: A41.9 Sepsis, unspecified organism (principal); J12.89 Other viral pneumonia; U07.1 COVID-19; J96.01 Acute respiratory failure with hypoxia; G93.41 Metabolic encephalopathy; I21.4 Non-ST elevation (NSTEMI) myocardial infarction; I50.30 Unspecified diastolic (congestive) heart failure; N17.9 Acute kidney failure, unspecified; E78.00 Pure hypercholesterolemia, unspecified; E78.5 Hyperlipidemia, unspecified; F03.90 Unspecified dementia, unspecified severity, without behavioral disturbance, psychotic disturbance, mood disturbance, and anxiety; I11.0 Hypertensive heart disease with heart failure; M19.042 Primary osteoarthritis, left hand; M19.041 Primary osteoarthritis, right hand; I25.10 Atherosclerotic heart disease of native coronary artery without angina pectoris; Z86.73 Personal history of transient ischemic attack (TIA), and cerebral infarction without residual deficits; F32.9 Major depressive disorder, single episode, unspecified; F41.9 Anxiety disorder, unspecified; Z87.440 Personal history of urinary (tract) infections; Z88.0 Allergy status to penicillin; Z79.899 Other long term (current) drug therapy
CPT/HCPCS: 36415; 71045; 80053; 80061; 81001; 82550; 83605; 83735; 83880; 84484; 85007; 85025; 85610; 87040; 93005; 99291; J1650; J1956; J2060; J2270; J3010; J3490; J7030; G0378

== ENCOUNTER 2020-01-14 10:50 | Inpatient (IN) | payer OTHER ==
[~2020-01-14] VITALS: Ht 167.6 cm; Wt 74.3 kg
[~2020-01-14 10:50] MED LIST changes: +ACET500T68 PO; +ALPR0.254 PO; +AMLO5TAB10 PO; +ASPI81TA50 PO; +CETI10TA16 PO; +DICL100G18 TP; +FAMO20TA5 PO; +FURO20TA3 PO; +GUAI473L15 PO; +MELA1TAB9 PO; +POTA20TA4 PO
[2020-01-14] MEDS ORDERED: BISACODYL 10 MG SUPP.RECT. PR PRN (12:45)
[2020-01-14] MEDS ORDERED: LORazepam 1 MG TABLET PO PRN (12:45)
[2020-01-14] MEDS ORDERED: PROMETHAZINE 25 MG SUPP.RECT. PR PRN (12:45)
[2020-01-14] MEDS: MORPHINE SULFATE 2 MG/ML VIAL. IV PRN ×2 (15:33→20:59)
[2020-01-14 20:05] VITALS: BP 140/83
[2020-01-15] MEDS: MORPHINE SULFATE 2 MG/ML VIAL. IV PRN ×4 (06:30→20:42)
[2020-01-15] MEDS: ACETAMINOPHEN 650 MG SUPP.RECT. PR PRN ×2 (06:34→20:42)
[2020-01-15 07:00] VITALS: BP 140/79
[2020-01-15] MEDS: MORPHINE SULFATE 20 MG/ML CONC SOLUTION. SL PRN (08:47)
--- NOTE | 2020-01-15 09:32 | PDOC1 ---
History and Physical Date of Admission Date of Admission DATE: 01/15/20 TIME: 09:29 Identification/Chief Complaint Chief Complaint Hypoxic respiratory failure Source Source: Caregiver, Chart review History of Present Illness History of Present Illness Ms Junior is an 89 yo F who lives at the [facility] where there is an outbreak of COVID-19 infection. She was brought into the hospital with altered mental status. She was COVID positive. Her troponin was elevated. She required oxygen at high flow, saturation of 100%. No further history could be obtained from the patient. She was seen by pulmonology and cardiology and continued to decline and require progressively more O2 and ultimately her family wished for transition to comfort care in inpatient hospice. She is not verbalizing with me, appears comfortable. HR in the 130s, O2 saturations 94% on 4L. Past Medical History Cardiovascular: HTN CENTRAL NERVOUS SYSTEM: Dementia Hepatobiliary: No pertinent hx Psych: Depression Musculoskeletal: Osteoarthritis Endocrine: No pertinent hx Past Surgical History Past Surgical History: Hernia Repair Family History Family History: Family History Unknown Social History Smoke: No ALCOHOL: none Drugs: None Current Medications Current Medications Current Medications Morphine Sulfate (Roxanol Conc) 5 mg PRN Q2HRS PRN SL SOA/MOD-SEVERE PAIN Last administered on 01/15/20at 08:47; Start 01/14/20 at 12:45 Lorazepam (Ativan) 1 mg PRN Q4HRS PRN PO ANXIETY / AGITATION; Start 01/14/20 at 12:45 Bisacodyl (Dulcolax Supp) 10 mg PRN DAILY PRN OK CONSTIPATION; Start 01/14/20 at 12:45 Promethazine HCl (Phenergan Supp) 25 mg PRN Q4HRS PRN OK NAUSEA/VOMITING; Start 01/14/20 at 12:45 Acetaminophen (Tylenol Supp) 650 mg PRN Q4HRS PRN OK MILD PAIN / TEMP Last administered on 01/15/20at 06:34; Start 01/14/20 at 12:45 Morphine Sulfate (Morphine Sulfate) 2 mg PRN Q1HR PRN IV MODERATE/SEVERE PAIN Last administered on 01/15/20at 06:30; Start 01/14/20 at 14:00 Lorazepam (Ativan Inj) 1 mg PRN Q1HR PRN IVP ANXIETY / AGITATION/; Start 01/14/20 at 14:00 Active Scripts Active Reported Voltaren (Diclofenac Sodium) 100 Gm Gel..gram. 1 Gm TP PRN BID PRN 30 Days apply to affected area(s) Acetaminophen 500 Mg Tablet 1 Tab PO PRN Q4HRS PRN 15 Days Tramadol Hcl 50 Mg Tablet 25 Mg PO PRN Q4HRS PRN Potassium Chloride (Potassium Chloride) 20 Meq Tablet.er 20 Meq PO QODAY Melatonin 1 Mg Tablet 1 Tab PO QHS 30 Days Guaifenesin Ac Cough Syrup (Guaifenesin/Codeine Phosphate) 473 Ml Liquid 10 Ml PO PRN Q6HRS PRN MDD 60 Milliliter(s) 4 Days Furosemide 20 Mg Tablet 1 Tab PO QODAY Famotidine 20 Mg Tablet 20 Mg PO PRN BID PRN Cetirizine Hcl 10 Mg Tablet 1 Tab PO DAILY Aspir-Low (Aspirin) 81 Mg Tablet.dr 1 Tab PO DAILY Amlodipine Besylate 5 Mg Tablet 5 Mg PO DAILY Alprazolam 0.25 Mg Tablet 0.25 Mg PO PRN Q6HRS PRN Allergies Allergies: Coded Allergies: Penicillins (Verified Allergy, Intermediate, RASH, 11/15/17) ROS Review of System Unable to obtain due to nonverbal status Physical Exam General: mild distress HEENT: Atraumatic, PERRLA, EOMI, Mucous membr. moist/pink Lungs: Other (Diffuse crackles) Heart: irregularly irregular Abdomen: Normal bowel sounds, Soft, No tenderness, No hepatosplenomegaly, No masses Extremities: No clubbing, No cyanosis, No edema, Normal pulses, No tenderness/swelling Skin: No rashes, No breakdown, No significant lesion Neuro: Reflexes 2+ Vitals Vitals Vital Signs Date Time Temp Pulse Resp B/P (MAP) Pulse Ox O2 Delivery O2 Flow Rate FiO2 01/15/20 08:47 18 Nasal Cannula 5.0 01/15/20 07:00 101.6 120 140/79 (99) 98 101.6 VTE Prophylaxis Ordered VTE Prophylaxis Devices: No VTE Pharmacological Prophylaxi: No Assessment/Plan Assessment/Plan A/P: Acute respiratory failure secondary to viral pneuonia, COVID +. Resident of [place]. CXR with bilateral infiltrates as expected from covid infection - on O2, comfort care NSTEMI secondary most likely to physical burden from above mentioned infectious process; EKG with ST. Non-specific ST/T-wave changes. Most probably type II, demand ischemia in setting of COVID. - no intervention, on comfort care History of essential Hypertension; currently low BP - stable Metabolic Encephalopathy with h/o dementia - nonverbal Acute renal failure vasomotor etiology most likely - was given IVF, now NPO, does not indicate hunger even when cued DNR/DNI Cont inpatient hospice STEPHANIE SANTORO MD Jan 15, 2020 09:32
[2020-01-15 19:00] VITALS: BP 131/79
[2020-01-16] MEDS: ACETAMINOPHEN 650 MG SUPP.RECT. PR PRN ×2 (01:55→12:57)
[2020-01-16] MEDS: MORPHINE SULFATE 2 MG/ML VIAL. IV PRN (04:41)
[2020-01-16 07:00] VITALS: BP 141/78
--- NOTE | 2020-01-16 10:17 | PDOC ---
PROGRESS NOTES Chief Complaint Chief Complaint A/P: Acute respiratory failure secondary to viral pneuonia, COVID +. Resident of [place]. CXR with bilateral infiltrates as expected from covid infection - on O2, comfort care NSTEMI secondary most likely to physical burden from above mentioned infectious process; EKG with ST. Non-specific ST/T-wave changes. Most probably type II, demand ischemia in setting of COVID. - no intervention, on comfort care History of essential Hypertension; currently low BP - stable Metabolic Encephalopathy with h/o dementia - nonverbal Acute renal failure vasomotor etiology most likely - was given IVF, now NPO, does not indicate hunger even when cued DNR/DNI Cont inpatient hospice History of Present Illness History of Present Illness Ms Junior is an 89 yo F who lives at the [facility] where there is an outbreak of COVID-19 infection. She was brought into the hospital with altered mental status. She was COVID positive. Her troponin was elevated. She required oxygen at high flow, saturation of 100%. No further history could be obtained from the patient. She was seen by pulmonology and cardiology and continued to decline and require progressively more O2 and ultimately her family wished for transition to comfort care in inpatient hospice. She is not verbalizing with me, appears comfortable. HR in the 130s, O2 saturations 94% on 4L. Vitals Vitals Vital Signs Date Time Temp Pulse Resp B/P (MAP) Pulse Ox O2 Delivery O2 Flow Rate FiO2 01/16/20 08:00 Nasal Cannula 5.0 01/16/20 07:00 102.3 139 18 141/78 (99) 98 102.3 Physical Exam General: mild distress Lungs: Crackles Abdomen: Normal bowel sounds, Soft, No tenderness, No hepatosplenomegaly, No masses Extremities: No clubbing, No cyanosis, No edema, Normal pulses, No tenderness/swelling Skin: No rashes, No breakdown, No significant lesion Comment Review of Relevant I have reviewed the following items alannah (where applicable) has been applied. Medications Current Medications Morphine Sulfate (Roxanol Conc) 5 mg PRN Q2HRS PRN SL SOA/MOD-SEVERE PAIN Last administered on 01/15/20at 08:47; Start 01/14/20 at 12:45 Lorazepam (Ativan) 1 mg PRN Q4HRS PRN PO ANXIETY / AGITATION; Start 01/14/20 at 12:45 Bisacodyl (Dulcolax Supp) 10 mg PRN DAILY PRN [place] CONSTIPATION; Start 01/14/20 at 12:45 Promethazine HCl (Phenergan Supp) 25 mg PRN Q4HRS PRN [place] NAUSEA/VOMITING; Start 01/14/20 at 12:45 Acetaminophen (Tylenol Supp) 650 mg PRN Q4HRS PRN MA MILD PAIN / TEMP Last administered on 01/16/20at 01:55; Start 01/14/20 at 12:45 Morphine Sulfate (Morphine Sulfate) 2 mg PRN Q1HR PRN IV MODERATE/SEVERE PAIN Last administered on 01/16/20at 04:41; Start 01/14/20 at 14:00 Lorazepam (Ativan Inj) 1 mg PRN Q1HR PRN IVP ANXIETY / AGITATION/; Start 01/14/20 at 14:00 Active Scripts Active Reported Voltaren (Diclofenac Sodium) 100 Gm Gel..gram. 1 Gm TP PRN BID PRN 30 Days apply to affected area(s) Acetaminophen 500 Mg Tablet 1 Tab PO PRN Q4HRS PRN 15 Days Tramadol Hcl 50 Mg Tablet 25 Mg PO PRN Q4HRS PRN Potassium Chloride (Potassium Chloride) 20 Meq Tablet.er 20 Meq PO QODAY Melatonin 1 Mg Tablet 1 Tab PO QHS 30 Days Guaifenesin Ac Cough Syrup (Guaifenesin/Codeine Phosphate) 473 Ml Liquid 10 Ml PO PRN Q6HRS PRN MDD 60 Milliliter(s) 4 Days Furosemide 20 Mg Tablet 1 Tab PO QODAY Famotidine 20 Mg Tablet 20 Mg PO PRN BID PRN Cetirizine Hcl 10 Mg Tablet 1 Tab PO DAILY Aspir-Low (Aspirin) 81 Mg Tablet.dr 1 Tab PO DAILY Amlodipine Besylate 5 Mg Tablet 5 Mg PO DAILY Alprazolam 0.25 Mg Tablet 0.25 Mg PO PRN Q6HRS PRN Vitals/I & O Vital Sign - Last 24 Hours 01/15/20 01/15/20 01/15/20 01/15/20 10:40 13:48 14:18 19:00 Temp 101.4 101.4 Pulse 134 Resp 17 18 18 20 B/P (MAP) 131/79 (96) Pulse Ox 99 O2 Delivery Nasal Cannula Nasal Cannula Nasal Cannula O2 Flow Rate 5.0 5.0 5.0 01/15/20 01/15/20 01/15/20 01/16/20 20:00 20:42 21:12 04:41 Pulse Ox 98 98 98 O2 Delivery Nasal Cannula Nasal Cannula Nasal Cannula Nasal Cannula O2 Flow Rate 5.0 5.0 5.0 5.0 01/16/20 01/16/20 07:00 08:00 Temp 102.3 102.3 Pulse 139 Resp 18 B/P (MAP) 141/78 (99) Pulse Ox 98 O2 Delivery Nasal Cannula Nasal Cannula O2 Flow Rate 5.0 5.0 Intake and Output 01/15/20 01/15/20 01/16/20 15:00 23:00 07:00 Intake Total 0 ml 0 ml 0 ml Output Total 400 ml Balance -400 ml 0 ml 0 ml STEPHANIE SANTORO MD Jan 16, 2020 10:17
[2020-01-16] MEDS: MORPHINE SULFATE 20 MG/ML CONC SOLUTION. SL PRN ×2 (12:57→14:53)
[2020-01-16] MEDS: MORPHINE SULFATE/PF 30 ML IV PRN (15:53)
[2020-01-16 19:00] VITALS: BP 128/76
[2020-01-17] MEDS: ACETAMINOPHEN 650 MG SUPP.RECT. PR PRN ×2 (03:03→16:49)
[2020-01-17 08:00] VITALS: BP 123/72
--- NOTE | 2020-01-17 09:07 | PDOC ---
PROGRESS NOTES Chief Complaint Chief Complaint A/P: Acute respiratory failure secondary to viral pneuonia, COVID +. Resident of [place]. CXR with bilateral infiltrates as expected from covid infection - on O2, comfort care NSTEMI secondary most likely to physical burden from above mentioned infectious process; EKG with ST. Non-specific ST/T-wave changes. Most probably type II, demand ischemia in setting of COVID. - no intervention, on comfort care History of essential Hypertension; currently low BP - stable Metabolic Encephalopathy with h/o dementia - nonverbal Acute renal failure vasomotor etiology most likely - was given IVF, now NPO, does not indicate hunger even when cued DNR/DNI Cont inpatient hospice History of Present Illness History of Present Illness Ms Junior is an 89 yo F who lives at the [facility] where there is an outbreak of COVID-19 infection. She was brought into the hospital with altered mental status. She was COVID positive. Her troponin was elevated. She required oxygen at high flow, saturation of 100%. No further history could be obtained from the patient. She was seen by pulmonology and cardiology and continued to decline and require progressively more O2 and ultimately her family wished for transition to comfort care in inpatient hospice. 01/15: She is not verbalizing with me, appears comfortable. HR in the 130s, O2 saturations 94% on 4L. 102.3F tmax on 01/15. 100F this morning. 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 She appears more comfortable now that she is on this therapy. Vitals Vitals Vital Signs Date Time Temp Pulse Resp B/P (MAP) Pulse Ox O2 Delivery O2 Flow Rate FiO2 01/16/20 20:05 Nasal Cannula 3.0 01/16/20 19:00 100.0 136 14 128/76 (93) 95 100.0 Physical Exam General: mild distress Lungs: Crackles Abdomen: Normal bowel sounds, Soft, No tenderness, No hepatosplenomegaly, No masses Extremities: No clubbing, No cyanosis, No edema, Normal pulses, No tenderness/swelling Skin: No rashes, No breakdown, No significant lesion Comment Review of Relevant I have reviewed the following items alannah (where applicable) has been applied. Medications Current Medications Morphine Sulfate (Roxanol Conc) 5 mg PRN Q2HRS PRN SL SOA/MOD-SEVERE PAIN Last administered on 01/16/20at 14:53; Start 01/14/20 at 12:45 Lorazepam (Ativan) 1 mg PRN Q4HRS PRN PO ANXIETY / AGITATION; Start 01/14/20 at 12:45 Bisacodyl (Dulcolax Supp) 10 mg PRN DAILY PRN [place] CONSTIPATION; Start 01/14/20 at 12:45 Promethazine HCl (Phenergan Supp) 25 mg PRN Q4HRS PRN [place] NAUSEA/VOMITING; Start 01/14/20 at 12:45 Acetaminophen (Tylenol Supp) 650 mg PRN Q4HRS PRN [place] MILD PAIN / TEMP Last administered on 01/17/20at 03:03; Start 01/14/20 at 12:45 Morphine Sulfate (Morphine Sulfate) 2 mg PRN Q1HR PRN IV MODERATE/SEVERE PAIN Last administered on 01/16/20at 04:41; Start 01/14/20 at 14:00 Lorazepam (Ativan Inj) 1 mg PRN Q1HR PRN IVP ANXIETY / AGITATION/; Start 01/14/20 at 14:00 Morphine Sulfate 30 ml @ 0 mls/hr CONT PRN PRN IV PER PROTOCOL Last administered on 01/16/20at 15:53; Start 01/16/20 at 15:30 Active Scripts Active Reported Voltaren (Diclofenac Sodium) 100 Gm Gel..gram. 1 Gm TP PRN BID PRN 30 Days apply to affected area(s) Acetaminophen 500 Mg Tablet 1 Tab PO PRN Q4HRS PRN 15 Days Tramadol Hcl 50 Mg Tablet 25 Mg PO PRN Q4HRS PRN Potassium Chloride (Potassium Chloride) 20 Meq Tablet.er 20 Meq PO QODAY Melatonin 1 Mg Tablet 1 Tab PO QHS 30 Days Guaifenesin Ac Cough Syrup (Guaifenesin/Codeine Phosphate) 473 Ml Liquid 10 Ml PO PRN Q6HRS PRN MDD 60 Milliliter(s) 4 Days Furosemide 20 Mg Tablet 1 Tab PO QODAY Famotidine 20 Mg Tablet 20 Mg PO PRN BID PRN Cetirizine Hcl 10 Mg Tablet 1 Tab PO DAILY Aspir-Low (Aspirin) 81 Mg Tablet.dr 1 Tab PO DAILY Amlodipine Besylate 5 Mg Tablet 5 Mg PO DAILY Alprazolam 0.25 Mg Tablet 0.25 Mg PO PRN Q6HRS PRN Vitals/I & O Vital Sign - Last 24 Hours 01/16/20 01/16/20 19:00 20:05 Temp 100.0 100.0 Pulse 136 Resp 14 B/P (MAP) 128/76 (93) Pulse Ox 95 O2 Delivery Nasal Cannula O2 Flow Rate 3.0 Intake and Output 01/16/20 01/16/20 01/17/20 15:00 23:00 07:00 Intake Total 0 ml 0 ml Output Total 450 ml Balance -450 ml 0 ml STEPHANIE SANTORO MD Jan 17, 2020 09:07
[2020-01-17] MEDS: MORPHINE SULFATE/PF 30 ML IV PRN (12:22)
--- NOTE | 2020-01-18 02:37 | NUR ---
Patient was asystole on the monitor. When staffs got into the room, pt has at 2038 on 01/17/2020. Hospice nurse, family, nursing postal supervisor, Dr. Kamara were all notified. Pt have one ring left on her Right finger that family is aware of.
--- NOTE | 2020-01-18 18:47 | PDOC3 ---
Discharge Summary Visit Information Date of Admission: Jan 15, 2020 Date of Discharge: Jan 17, 2020 Admitting Diagnosis: Acute hypoxic respiratory failure, COVID 19 Pneumonia Final Diagnosis COVID 19 Pneumonia Brief Hospital Course Allergies Allergies Coded Allergies Type Severity Reaction Last Updated Verified Penicillins Allergy Intermediate RASH 11/15/17 Yes Vital Signs Vital Signs Date Time Temp Pulse Resp B/P (MAP) Pulse Ox O2 Delivery O2 Flow Rate FiO2 01/17/20 13:00 95 Nasal Cannula 5.0 01/17/20 08:00 101.1 133 8 123/72 (89) 101.1 Brief Hospital Course Ms Junior is an 89 yo F from intermediate [facility] where there is an outbreak of COVID-19 infection. She was brought into the hospital with altered mental status. She was COVID positive. Her troponin was elevated. She required oxygen at high flow, saturation of 100%. No further history could be obtained from the patient. She was seen by pulmonology and cardiology and continued to decline and require progressively more O2 and ultimately her family wished for transition to comfort care in inpatient hospice. 01/15: She is not verbalizing with me, appears comfortable. HR in the 130s, O2 saturations 94% on 4L. 102.3F tmax on 01/15. 100F. 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 She appeared more comfortable on this therapy. At 2038 patient noted with no cardiac or respiratory activity on 01/17/2020. Problem list: Acute respiratory failure secondary to viral pneumonia, COVID +. NSTEMI secondary most likely to physical burden from above COVID 19 SARS-CoV-2 History of essential Hypertension; currently low BP Metabolic Encephalopathy with h/o dementia Acute renal failure vasomotor etiology most likely Discharge Information Condition at Discharge: / Disposition/Orders: Scheduled Amlodipine Besylate (Amlodipine Besylate) 5 Mg Tablet, 5 MG PO DAILY for HTN, (Reported) Entered as Reported by: PEGGY TOWNSEND on 01/12/201406 Last Taken: Unknown Dose on 01/10/20 Last Action: Last Taken Edited on 01/14/20 1308 by KEITH RUTHERFORD, IVY Aspirin (Aspir-Low) 81 Mg Tablet.dr, 1 TAB PO DAILY for CVA, #30 Ref 3 (Reported) Entered as Reported by: PEGGY TOWNSEND on 01/12/201406 Last Taken: Unknown Dose on 01/11/20 Last Action: Last Taken Edited on 01/14/201307 by KEITH RUTHERFORD RN Cetirizine Hcl (Cetirizine Hcl) 10 Mg Tablet, 1 TAB PO DAILY for allergies, #30 Ref 5 (Reported) Entered as Reported by: PEGGY TOWNSEND on 01/12/201406 Last Taken: Unknown Dose on 01/11/20 Last Action: Last Taken Edited on 01/14/201307 by KEITH RUTHERFORD RN Furosemide (Furosemide) 20 Mg Tablet, 1 TAB PO QODAY for rales, #90 Ref 1 (Reported) Entered as Reported by: PEGGY TOWNSEND on 01/12/201406 Last Taken: Unknown Dose on 01/11/20 Last Action: Last Taken Edited on 01/14/201307 by KEITH RUTHERFORD RN Melatonin (Melatonin) 1 Mg Tablet, 1 TAB PO QHS for sleep for 30 Days, #30 Ref 0 (Reported) Entered as Reported by: PEGGY TOWNSEND on 01/12/201406 Last Taken: Unknown Dose on 01/11/20 Last Action: Last Taken Edited on 01/14/201307 by KEITH RUTHERFORD RN Potassium Chloride (Potassium Chloride ) 20 Meq Tablet.er, 20 MEQ PO QODAY for SUPPLEMENT, (Reported) Entered as Reported by: PEGGY TOWNSEND on 01/12/201406 Last Taken: Unknown Dose on 01/11/20 Last Action: Last Taken Edited on 01/14/201307 by KEITH RUTHERFORD RN Scheduled PRN Acetaminophen (Acetaminophen) 500 Mg Tablet, 1 TAB PO PRN Q4HRS PRN for pain or fever for 15 Days, #60 Ref 0 (Reported) Entered as Reported by: PEGGY TOWNSEND on 01/12/201406 Last Taken: Unknown Dose on 01/08/20 Last Action: Last Taken Edited on 01/14/201307 by KEITH RUTHERFORD RN Alprazolam (Alprazolam) 0.25 Mg Tablet, 0.25 MG PO PRN Q6HRS PRN for ANXIETY / AGITATION, Ref 0 (Reported) Entered as Reported by: PEGGY TOWNSEND on 01/12/201406 Last Taken: Unknown Dose on 12/31/19 Last Action: Last Taken Edited on 01/14/201307 by KEITH RUTHERFORD RN Diclofenac Sodium (Voltaren) 100 Gm Gel..gram., 1 GM TP PRN BID PRN for MILD PAIN / TEMP for 30 Days, #1 Ref 0 (Reported) apply to affected area(s) Entered as Reported by: PEGGY TOWNSEND on 01/12/201406 Last Taken: Unknown Dose on 01/08/20 Last Action: Last Taken Edited on 01/14/201307 by KEITH RUTHERFORD RN Famotidine (Famotidine) 20 Mg Tablet, 20 MG PO PRN BID PRN for GI SYMPTOMS, (Reported) Entered as Reported by: PEGGY TOWNSEND on 01/12/201406 Last Taken: Unknown Dose on 12/31/19 Last Action: Last Taken Edited on 01/14/201307 by KEITH RUTHERFORD RN Guaifenesin/Codeine Phosphate (Guaifenesin Ac Cough Syrup) 473 Ml Liquid, 10 ML PO PRN Q6HRS PRN for cough and congestion MDD 60 Milliliter(s) for 4 Days, #240 Ref 0 (Reported) Entered as Reported by: PEGGY TOWNSEND on 01/12/201406 Last Taken: Unknown Dose on 01/12/20 Last Action: Last Taken Edited on 01/14/201307 by KEITH RUTHERFORD RN Tramadol Hcl (Tramadol Hcl) 50 Mg Tablet, 25 MG PO PRN Q4HRS PRN for PAIN, Ref 0 (Reported) Entered as Reported by: PEGGY TOWNSEND on 01/12/201406 Last Taken: Unknown Dose on 01/01/20 Last Action: Last Taken Edited on 01/14/201307 by KEITH RUTHERFORD RN Discontinued Medications Tramadol Hcl (Tramadol Hcl) 50 Mg Tablet, 1 TAB PO BID, #60 (Reported) Entered as Reported by: KAREEM CHATMAN on 11/15/17 0833 Last Action: Discontinued on 01/14/201307 by IVY MCKEON CHRISTOPHER S MD Jan 18, 2020 18:47
== END 2020-01-17 20:39 | disposition expired | DRG 177 ==
LOC: 6 SOUTH 11:50
PROVIDERS: ADMIT Internal Medicine; ATTEND Internal Medicine
DX: U07.1 COVID-19 (principal); G93.41 Metabolic encephalopathy; I21.4 Non-ST elevation (NSTEMI) myocardial infarction; J12.89 Other viral pneumonia; J96.01 Acute respiratory failure with hypoxia; N17.0 Acute kidney failure with tubular necrosis; F03.90 Unspecified dementia, unspecified severity, without behavioral disturbance, psychotic disturbance, mood disturbance, and anxiety; F41.9 Anxiety disorder, unspecified; I10 Essential (primary) hypertension; Z51.5 Encounter for palliative care; Z66 Do not resuscitate; Z79.82 Long term (current) use of aspirin; F32.9 Major depressive disorder, single episode, unspecified; M19.90 Unspecified osteoarthritis, unspecified site; Z86.73 Personal history of transient ischemic attack (TIA), and cerebral infarction without residual deficits; Z79.899 Other long term (current) drug therapy
CPT/HCPCS: J2270; G0378